=== PATIENT | female | born 1995 | race Caucasian/White ===

== ENCOUNTER → 2020-07-11 14:26 | Outpatient (CLI) | payer OTHER, SELFPAY ==
[2020-07-11 13:09] VITALS: BMI 38.0
[2020-07-11 14:42] LABS: Absolute Lymphocyte Count 1.97 X10^3/uL (0.83-4.51); Absolute Neutrophil Count 6.5 X10^3/uL (2.0-7.7); Basophil# 0.01 X10^3/uL; Basophil% 0.1 % (0-1); Eosinophil# 0.04 X10^3/uL; Eosinophils% 0.4 % (0-5); Hematocrit 37.8 % (37-47); Hemoglobin 12.7 g/dL (12.0-15.0); Lymphocyte # 1.97 X10^3/ul (4.0); Lymphocyte % 21.4 % (19-41); Mean Corp Hgb Conc 33.6 g/dL (32-36); Mean Corpuscular Hgb 29.7 pg (27.0-32.0); Mean Corpuscular Volume 88.5 fL (81-99); Mean Platelet Vol. 10.4 fl (6.2-12.0); Monocyte# 0.61 X10^3/uL; Monocyte% 6.6 % (0-10); NRBC Flagged by Analyzer 0 % (0-5); Neutrophil # 6.53 X10^3/uL (2.7-7.7); Neutrophil % 71.2 % (47-70); Platelet Count 309 K/mm3 (150-450); RBC Distribution Width CV 12.1 % (11.6-14.6); RBC Distribution Width SD 39.1 fl (35.1-43.9); Red Blood Count 4.27 M/mm3 (4.2-5.4); White Blood Count 9.2 K/mm3 (4.4-11.0)
[2020-07-11 14:52] LABS: Glucose Challenge Gest 1H 50g 105 mg/dL (70-140)
[2020-07-11 18:14] LABS: Amphetamine Urine VISTA NEGATIVE (<1000 ng/mL); Barbiturate Urine VISTA NEGATIVE (< 200 ng/mL); Benzodiazepine Urine VISTA NEGATIVE (< 200 ng/mL); Cocaine Urine VISTA NEGATIVE (< 300 ng/mL); Ecstacy Urine VISTA NEGATIVE (< 500 ng/mL); Methadone Urine VISTA NEGATIVE (< 300 ng/mL); PCP Urine VISTA NEGATIVE (< 25 ng/mL); THC Urine VISTA NEGATIVE (< 50 ng/mL); Vista UDS pH Range 6
[2020-07-12 05:28] LABS: Rapid Plasmin Reagin (RPR) NONREACTIVE (NONREACTIVE)
[2020-07-12 11:13] LABS: HIV - WCH Non-Reactive (Nonreactive); Hepatitis B Surface Antigen Non-Reactive (Nonreactive); Hepatitis C Antibody Non-Reactive (Nonreactive); Rubella IgG 29.9 IU/mL
[2020-07-14 12:07] LABS: Chlamydia By Nucleic Acid AMP Negative (Negative)
[2020-07-14 13:59] LABS: Gonococcus By Nucleic Acid AMP Negative (Negative)
== END ==
PROVIDERS: PCP Student in an Organized Health Care Education/Training Program; Referring Provider Obstetrics & Gynecology; Visit Provider Obstetrics & Gynecology
DX: Z34.90 Encounter for supervision of normal pregnancy, unspecified, unspecified trimester (principal)
CPT/HCPCS: 36415; 80307; 82950; 85025; 86592; 86703; 86762; 86803; 86850; 86900; 86901; 87086; 87088; 87340; 87491; 87591

== ENCOUNTER → 2020-08-13 12:17 | Outpatient (CLI) | payer OTHER, SELFPAY ==
[2020-08-13 12:09] VITALS: BMI 38.0
[2020-08-13 13:22] LABS: NATERA MAILED SPECIMEN
== END ==
PROVIDERS: PCP Student in an Organized Health Care Education/Training Program; Referring Provider Nurse Practitioner Women's Health; Visit Provider Nurse Practitioner Women's Health
DX: Z34.81 Encounter for supervision of other normal pregnancy, first trimester (principal)
CPT/HCPCS: 36415

== ENCOUNTER → 2020-09-06 17:23 | Outpatient (CLI) | payer OTHER, SELFPAY ==
[2020-08-13 12:09] VITALS: BMI 38.0
== END ==
PROVIDERS: PCP Student in an Organized Health Care Education/Training Program; Referring Provider Obstetrics & Gynecology; Visit Provider Obstetrics & Gynecology
DX: U07.1 COVID-19 (principal)
CPT/HCPCS: 87635; C9803; U0003

== ENCOUNTER → 2020-11-23 12:28 | Outpatient (CLI) | payer OTHER, SELFPAY ==
[2020-11-05 13:10] VITALS: BMI 39.3
--- NOTE | 2020-11-23 12:36 | US_ITS ---
STUDY: SECOND AND THIRD TRIMESTER OBSTETRICAL ULTRASOUND - LIMITED REASON FOR EXAM: Female, 25 years old GROWTH LMP: 05/05/2020. PRIOR ULTRASOUND: None. TECHNIQUE: Transabdominal TECHNICAL QUALITY: Adequate. FINDINGS: There is a single intrauterine fetus. The fetus is in a cephalic presentation. There is demonstrated cardiac activity with a heart rate of 136 bpm. There is a normal amniotic fluid volume. The largest amniotic fluid pocket measures 8.2 cm. The amniotic fluid index (KANNAN) is within normal limits. The placenta is posterior in location and is not low lying. There are Grade 0 placental changes. The cervix measures 3.7 cm in length. BIOMETRY: BPD: 7.68 cm: 30 weeks, 5 days HC: 28.68 cm: 31 weeks, 3 days AC: 25.55 cm: 29 weeks, 5 days FL: 5.35 cm: 28 weeks, 2 days Age by LMP: 28 weeks, 6 days. SILVA by LMP: 02/09/2021. age by current US: 30 weeks, 2 days. SILVA by current US: 01/30/2021. Estimated weight: 1411 grams, +/- 209 grams, 57 percentile. US/OB Limited With Biometrics IMPRESSION: Single live uterine gestation with a mean gestational age of 30 weeks and 2 days. Electronically Signed: Angel Ovalle, at 14:01 EST , Service support ,
[2020-11-23 13:46] LABS: Absolute Neutrophil Count 7.3 X10^3/uL (2.0-7.7); Basophil# 0.01 X10^3/uL; Basophil% 0.1 % (0-1); Eosinophil# 0.04 X10^3/uL; Eosinophils% 0.4 % (0-5); Hematocrit 37.2 % (37-47); Hemoglobin 12.2 g/dL (12.0-15.0); Mean Corp Hgb Conc 32.8 g/dL (32-36); Mean Corpuscular Hgb 28.8 pg (27.0-32.0); Mean Corpuscular Volume 87.7 fL (81-99); Mean Platelet Vol. 11.2 fl (6.2-12.0); Monocyte# 0.64 X10^3/uL; Monocyte% 6.4 % (0-10); NRBC Flagged by Analyzer 0 % (0-5); Neutrophil # 7.33 X10^3/uL (2.7-7.7); Neutrophil % 73.5 % (47-70); Platelet Count 240 K/mm3 (150-450); RBC Distribution Width CV 12.9 % (11.6-14.6); RBC Distribution Width SD 41.4 fl (35.1-43.9); Red Blood Count 4.24 M/mm3 (4.2-5.4)
[2020-11-23 13:58] LABS: Glucose Challenge Gest 1H 50g 159 mg/dL (70-140)
== END ==
PROVIDERS: Obstetrics & Gynecology; PCP Student in an Organized Health Care Education/Training Program; Referring Provider Obstetrics & Gynecology; Visit Provider Obstetrics & Gynecology
DX: O09.93 Supervision of high risk pregnancy, unspecified, third trimester (principal); Z13.1 Encounter for screening for diabetes mellitus; Z3A.30 30 weeks gestation of pregnancy
CPT/HCPCS: 36415; 76816; 82950; 85025

== ENCOUNTER → 2020-12-04 09:46 | Outpatient (CLI) | payer OTHER, SELFPAY ==
[2020-11-23 14:01] VITALS: BMI 39.6
[2020-12-04 10:39] LABS: Glucose GTT-Gestation. Fasting 79 mg/dL (<105)
[2020-12-04 12:55] LABS: Glucose GTT-Gestational 2 Hr 157 mg/dL (<165)
[2020-12-04 12:57] LABS: Glucose GTT-Gestational 1 Hr 154 mg/dL (<190)
[2020-12-04 14:19] LABS: Glucose GTT-Gestational 3 Hr 84 L (<145)
== END ==
PROVIDERS: PCP Student in an Organized Health Care Education/Training Program; Referring Provider Obstetrics & Gynecology; Visit Provider Obstetrics & Gynecology
DX: O99.810 Abnormal glucose complicating pregnancy (principal)
CPT/HCPCS: 36415; 82951; 82952

== ENCOUNTER → 2021-01-18 | Outpatient (CLI) | payer OTHER, SELFPAY ==
[2021-01-18 14:07] VITALS: BMI 41.0
== END | disposition home or self-care (01) ==
LOC: LABSPEC 16:13
PROVIDERS: PCP Student in an Organized Health Care Education/Training Program; Visit Provider Obstetrics & Gynecology
DX: Z34.93 Encounter for supervision of normal pregnancy, unspecified, third trimester (principal); Z3A.36 36 weeks gestation of pregnancy
CPT/HCPCS: 87081

== ENCOUNTER 2021-02-05 07:00 | Inpatient (IN) | payer OTHER, SELFPAY ==
[2020-11-23 14:01] VITALS: BMI 39.6
[2021-02-04 09:03] VITALS: BMI 41.1
[2021-02-05] VITALS (48 sets, daily range): BP systolic 86–144; BP diastolic 48–97; PULSE 56–245; TEMP 36.1–37.4; O2SAT 83–100; BMI 41.2
--- NOTE | 2021-02-05 07:33 | PCM.HPOB.BLA ---
- Problem List (1) 36 weeks gestation of Status: Acute Comment: electronic covid test ordered 01/18/21 (scheduled for 02/08/21 at 1450) (2) Abnormal glucose affecting Status: Acute Comment: NL 3gtt (3) Anxiety during Status: Acute Comment: encouraged counseling; 09/10 declines meds. (4) COVID-19 affecting , antepartum Status: Acute Comment: Tested positive 09/07. Recommend starting baby ASA and performing serial growth ultrasounds. NL growth 10/18/20 55%ile. Stopped ASA at 24 weeks. (5) Genital herpes affecting Status: Acute Qualifiers: Comment: valtrex at 36 weeks (6) LGA (large for gestational age) fetus affecting management of mother Status: Acute Qualifiers: Comment: discussed IOL bt 39-40 based on favorable herbert score (7) Macrosomia affecting management of mother Status: Acute Comment: 92%- 01/17/21 (8) Obesity affecting Status: Acute Qualifiers: Comment: 1 tm glucola. encouraged healthy weight gain. (9) Status: Acute Qualifiers: Comment: genetic- low risk, carrier, and ntd screening discussed. Anatomy- f/u heart and face views scheduled 10/01/20 (10) Supervision of high-risk Status: Acute Qualifiers: Comment: PRR SILVA 02/09/21 Boy! 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 Is patient in pain?: No Allergies No Known Allergies Allergy (Verified 02/04/21 09:03) Medications vitamin#30 30 mg iron-10 mg iron-folic acid 1 mg-omg3 capsule cap PO 07/11/20 [History Confirmed 02/04/21] promethazine 12.5 mg tablet 12.5 mg PO TID PRN #60 tab 07/13/20 [Rx Confirmed 02/04/21] valacyclovir 500 mg tablet 500 mg PO BID #60 tab 02/04/21 [Rx Confirmed 02/04/21] Last Menstral Period: 05/05/20 Zika: Zika virus screening: Negative : No PFSH PFSH Medical History Acne (Acute) Anxiety (Acute) Bulimia nervosa (Acute) Chronic motor or vocal tic disorder (Acute) Enteritis due to Rotavirus (Acute) Surgical History History of nasal surgery (Acute) Family History Brother Asthma Allergies Grandfather Diabetes Prostate cancer Social History (Updated 02/04/21 @ 09:[address] Stefani Mcduffie MD) Smoking Status: Never smoker alcohol intake: current details: pre preganncy substance use type: does not use caffeine: Yes what type of physical activity do you participate in: walking seatbelt use: always do you feel safe at home: Yes additional social history: Sae- [facility] [employer] Pregancy History 1 Elective abortions Hx Para Spontaneous abortions Hx # Term Pregnancies Ectopic pregnancies Hx # Pregnancies Multiple births # of living children HPI 39 weeks: Details: ZE KUMAR is a 25 year old who presents for IOL secondary to macrosomia and favorable herbert score. OB Visit SILVA Calculator Estimated Delivery Date Method Current WG Current Estimate 02/09/21 LMP (Certain) 39w 2d Other Estimates 02/09/21 Ultrasound #1 39w 2d Expected Delivery Route/Plan consider IOL 39-40 weeks based on herbert score, due to size Labor Preferences- CB/BF classes: CB classes in December labor support person: Sae labor intervention preferences: none pain management options preferred: epidural cut cord/dad catch: cut : yes PP control planned: undecided discussed possible routes of delivery and associated risks: discussed possible delivery modalities and possible indications for each including R/B/A of , VAVD, FAVD and CS. questions answered. special requests: desires to avoid OVD and episiotomy Specific Issue/Plans flu vaccine: declines tdap vaccine: declines rhogam: na LARC form signed: 12/07/20 movement and labor precautions reviewed. Problem list reviewed and updated with the most current plan of care details and appropriate orders placed. Relevant counseling for the gestational age provided. Continue routine care and follow up unless otherwise noted in visit notes/problem list details Initial Weight: 222 lb Date EGA Weight BP Urine Prot Glucose FHR FuHt Pres Dilation Effaced St Visit Note 07/11/20 9w 4d 222 lb (+0 oz) 110/86 170 SM- no vb cramping CRL 2.6 cm cons with LMP 08/13/20 14w 2d 222 lb (+0 oz) 124/78 Trace Negative 162 MH-No Vb, LOF. Nausea gone now. Has decided to get NIPT done. 10/10/20 22w 4d 228 lb (+6 lb) 120/70 Negative Negative 150 GP - no ctx, LOF, VB, DFM. Needs f/u views on anatomy scan. 11/05/20 26w 2d 229 lb (+7 lb) 112/74 Negative Negative 150 SM- no vb lof good fm no regular ctx. cbc gct tdap. SM- no vb lof good fm no regular ctx. cbc gct tdap next time 11/23/20 28w 6d 231 lb (+9 lb) 106/70 Negative Negative 145 29 SM- no vb lof good fm fn oregular ctx 12/07/20 30w 6d 234 lb (+12 lb) 124/80 Negative Negative 145 30 GP - no LOF, VB, DFM, ctx. Denies complaints. Pt stopped taking ASA at 24 weeks. LARC form signed. GP - no LOF, VB, DFM, ctx. Denies complaints. Pt stopped taking ASA at 24 weeks. LARC form signed. Considering Fee for name. 12/21/20 32w 6d 230 lb (+8 lb) 106/68 Negative Negative 145 33 SM- no vb lof good fm no regular ctx 01/04/21 34w 6d 236 lb (+14 lb) 120/70 Negative Negative 150 34 GP - no LOF, VB, DFM, ctx. Valtrex prescibed to start at 36w. CB classes this weekend. Discussed OVD. 01/18/21 36w 6d 239 lb (+17 lb) 132/88 Negative Negative 145 37 Cephalic 2 60 SM- no vb lof good fm no reuglar ctx 01/25/21 37w 6d 238 lb (+16 lb) 131/86 Negative Negative 140 38 Cephalic 2 SM- no vb lof good fm no regular ctx some diarrhea 02/01/21 38w 6d 240 lb (+18 lb) 129/87 Negative Negative 140 39 Cephalic 3 60 -2 SM- no vb lof good fm no regular ctx 02/04/21 39w 2d 240 lb (+18 lb) 110/88 Negative Negative 145 41 Cephalic 4 70 -1 SM- no vb lof good fm no regular ctx discussed IOL for macrosomia and favorable cervix ACOG First Trimester First Trimester: Desire for , Alcohol, Tobacco Cessation, Illicit/Recreational Drug/Substance Use, Intimate Partner Violence, Barriers to care, Unstable Housing, Communication Barriers, Environmental/Work Hazards, Anticipated Course of Care, Toxoplasmosis Precations, Use of Any medications, Sexual activity, Exercise, Dental Care, Sauna/Hot tub use, Seat Belt use, Childbirth classes/Hospital facilities, , Travel, Indications for US and Screening for Aneuploidy Second Trimester Second Trimester: Signs and Symptoms of Labor, Selecting a care provider, Reproductive Life Planning, Care Planning, Tobacco Cessation, Depression/Anxiety and Intimate Partner Violence Third Trimester Third Trimester: Pain Management Plans, Labor support person(s), Immediate Larc, Movement Monitoring and Feeding Yes ; discussed Trial of Labor after Counseling or discussed Circumcision preference Diagnostics Diagnostics Diagnostics Gest Glucose Tolerance MG/DL 12/04/20 Glucose 1 Hr 50 gm 159 mg/dL (70-140) H 11/23/20 Hgb 12.2 g/dL (12.0-15.0) 11/23/20 Hct 37.2 % (37-47) 11/23/20 Details: HIV: Urine Culture: Sequential Screen: NIPT Screen: Addendum entered and electronically signed by Stefani Mcduffie MD 02/04/21 09:26: ROS Const Reports system reviewed and no additional complaints, except as documented Card Reports system reviewed and no additional complaints, except as documented Resp Reports system reviewed and no additional complaints, except as documented GI Reports system reviewed and no additional complaints, except as documented, Reports nausea Reports system reviewed and no additional complaints, except as documented Musc Reports system reviewed and no additional complaints, except as documented all other systems reviewed and negative Exam Const General: cooperative, healthy appearing, comfortable HENMT Head: normal to inspection Nose: external nose normal Face and sinus: normal facial exam Neck Neck: normal visual inspection, full ROM, no lymphadenopathy Thyroid: thyroid normal Chest Chest palpation & inspection: normal inspection of the chest Resp Effort & Inspection: normal respiratory effort GI Inspection: normal to inspection Palpation: soft, other (gravid uterus) Other: vertex and large size for gestational age Other: Cervical Exam: /-1 Extrem General: pedal edema Assessment & Plan Problems 1. Z34.90 genetic- low risk, carrier, and ntd screening discussed. Anatomy- f/u heart and face views scheduled 10/01/20 2. Obesity affecting O99.210 1 tm glucola. encouraged healthy weight gain. 3. Anxiety during O99.340; F41.9 encouraged counseling; 09/10 declines meds. 4. COVID-19 affecting , antepartum O98.519; U07.1 Tested positive 09/07. Recommend starting baby ASA and performing serial growth ultrasounds. NL growth 10/18/20 55%ile. Stopped ASA at 24 weeks. 5. Abnormal glucose affecting O99.810 NL 3gtt 6. LGA (large for gestational age) fetus affecting management of mother O36.60X0 discussed IOL bt 39-40 based on favorable herbert score 7. Genital herpes affecting O98.319; A60.09 valtrex at 36 weeks 8. 36 weeks gestation of Z3A.36 electronic covid test ordered 01/18/21 (scheduled for 02/08/21 at 1450) 9. Macrosomia affecting management of mother O36.60X0 92%- 01/17/21 10. Supervision of high-risk O09.90 PRR SILVA 02/09/21 Boy! Probably Fee Sae Patient presents IOL, plan management for with pitocin/AROM. Pain management: plans epidural. GBS negative. Management of any complications: macrosomia I have reviewed the ON LICENSE OF [facility] and made any clinically relevant updates.
[2021-02-05] MEDS: Lactated Ringers 1,000 ML 50 ML IV (07:45)
[2021-02-05 08:08] LABS: Absolute Neutrophil Count 7.3 X10^3/uL (2.0-7.7); Basophil# 0.01 X10^3/uL; Basophil% 0.1 % (0-1); Eosinophil# 0.04 X10^3/uL; Eosinophils% 0.4 % (0-5); Hematocrit 36.1 % (37-47); Hemoglobin 12.1 g/dL (12.0-15.0); Lymphocyte % 20.7 % (19-41); Mean Corp Hgb Conc 33.5 g/dL (32-36); Mean Corpuscular Hgb 29.6 pg (27.0-32.0); Mean Corpuscular Volume 88.3 fL (81-99); Monocyte# 0.64 X10^3/uL; Monocyte% 6.3 % (0-10); NRBC Flagged by Analyzer 0 % (0-5); Neutrophil # 7.27 X10^3/uL (2.7-7.7); Neutrophil % 71.6 % (47-70); Platelet Count 198 K/mm3 (150-450); RBC Distribution Width CV 13.7 % (11.6-14.6); RBC Distribution Width SD 43.8 fl (35.1-43.9); Red Blood Count 4.09 M/mm3 (4.2-5.4); White Blood Count 10.2 K/mm3 (4.4-11.0)
[2021-02-05] MEDS: Oxytocin 30 units/NS 500 ml 30 UNITS/500 ML IV.SOLN IV (08:11)
[2021-02-05] MEDS: fentaNYL 100 MCG/2 ML Ampul IV (15:46)
[2021-02-05] MEDS: fentaNYL-bupivacaine (epidural) 100 ML BAG EPIDURAL ×2 (16:15→21:23)
[2021-02-05] MEDS: Lactated Ringers 500 ML 999 ML IV ×2 (16:19→21:19)
[2021-02-05] MEDS: Lactated Ringers 1,000 ML 200 ML IV (19:35)
[2021-02-06] VITALS (41 sets, daily range): BP systolic 98–140; BP diastolic 56–88; PULSE 71–107; RESP 12–18; TEMP 36.1–37; O2SAT 84–98
[2021-02-06] MEDS: Lactated Ringers 1,000 ML 200 ML IV ×2 (01:04→06:16)
[2021-02-06] MEDS: Lactated Ringers 500 ML 999 ML IV (01:16)
[2021-02-06] MEDS: fentaNYL-bupivacaine (epidural) 100 ML BAG EPIDURAL ×2 (02:04→06:55)
[2021-02-06] MEDS: Acetaminophen 500 MG Tablet PO (10:17)
[2021-02-06] MEDS: Sodium Citrate/Citric Acid 30 ML UDC PO (10:17)
[2021-02-06] MEDS: Cefazolin 2 GM in 0.9% Normal Saline 100 ML IV (10:40)
[2021-02-06] MEDS: Ondansetron 4 MG/2 ML Vial IV (11:42)
[2021-02-06] MEDS: Lactated Ringers 1,000 ML 100 ML IV (11:45)
[2021-02-06] MEDS: Ketorolac 30 MG/ML Syringe IV ×2 (12:00→18:02)
[2021-02-06] MEDS: Oxytocin 30 units/NS 500 ml 30 UNITS/500 ML IV.SOLN 167 UNITS IV (12:00)
--- NOTE | 2021-02-06 13:07 | PCM.OPRPT ---
Problem List (1) 36 weeks gestation of Status: Acute Comment: electronic covid test ordered 01/18/21 (scheduled for 02/08/21 at 1450) (2) Abnormal glucose affecting Status: Acute Comment: NL 3gtt (3) Anxiety during Status: Acute Comment: encouraged counseling; 09/10 declines meds. (4) COVID-19 affecting , antepartum Status: Acute Comment: Tested positive 09/07. Recommend starting baby ASA and performing serial growth ultrasounds. NL growth 10/18/20 55%ile. Stopped ASA at 24 weeks. (5) Genital herpes affecting Status: Acute Qualifiers: Comment: valtrex at 36 weeks (6) LGA (large for gestational age) fetus affecting management of mother Status: Acute Qualifiers: Comment: discussed IOL bt 39-40 based on favorable richmond score (7) Macrosomia affecting management of mother Status: Acute Comment: 92%- 01/17/21 (8) Obesity affecting Status: Acute Qualifiers: Comment: 1 tm glucola. encouraged healthy weight gain. (9) Status: Acute Qualifiers: Comment: genetic- low risk, carrier, and ntd screening discussed. Anatomy- f/u heart and face views scheduled 10/01/20 (10) Supervision of high-risk Status: Acute Qualifiers: Comment: PRR SILVA 02/09/21 Boy! Probably Fee Sae Delivery Classification: MAXWELL Final SILVA: 02/09/21 Gestational age: 39 Weeks and 4 Days rhinestone setter: Yulissa Ramos Special Medications: sandra Implants Used: none Date of Procedure: 02/06/21 Pre-Operative Diagnosis: lga, arrest of descent and dilation Post-Operative Diagnosis: same plus CPD Indications for : Arrrest of Descent Description of Procedure: 25-year-old G1, P0 at 39 weeks 4 days presents for induction of labor secondary to macrosomia and favorable Richmond score of 9. Patient had estimated weight in the 92nd percentile and was counseled regarding options of management for expectant management versus induction of labor. The decision was made to not induce unless her Richmond score was favorable. Upon admission Richmond score was 9. Patient was started on Pitocin and underwent artificial rupture membranes and epidural. Patient began at 7:00 in the morning and by 11:00 that night she was 8 cm dilated and in active labor with an IUPC placed there were intermittent periods of adequate [place] units as the Pitocin had to be dosed intermittently due to heart rate variable decelerations intermittently. Overall heart rate tracing pattern was reassuring and therefore labor continued. 11 hours later she was arrested at 9 cm with adequate contractions and to Pitocin washouts performed therefore the patient was counseled regarding options and the decision to proceed with a primary for suspicion of CPD or large for gestational age was made. Epidural dose was adequate and the patient was placed in the dorsal supine position with leftward tilt. Patient was prepped and draped in the normal sterile fashion. Pfannenstiel skin incision was made with the scalpel and carried through to the underlying layer of fascia with the scalpel. Fascia was nicked in the midline and the incision extended laterally. The rectus bellies were dissected off superiorly and inferiorly with out complication both sharply and bluntly. The peritoneum was entered digitally. The incision was stretched and a low transverse uterine incision was made with the scalpel. The 's head was delivered atraumatically followed by the anterior and posterior shoulders without complication the rest of the infant delivered. The cord was clamped and cut and the was handed off to awaiting nurse. Difficult molding of the head was noted and therefore CPD was suspected. the placenta was delivered spontaneously immediately following and was noted to be intact and have a three-vessel cord. The uterus was exteriorized cleared of all clots and debris, and the incision was closed in a double layer closure using #1 Monocryl. Patient all 3 of 8 sutures were placed over the right uterine incision to obtain hemostasis. The ovaries and fallopian tubes were noted to be within normal limits. The uterus was returned to the maternal abdomen and gutters were cleared of all clots and debris. The peritoneum was closed with 3-0 Monocryl in a running fashion. Gloves were changed prior to fascial closure. Fascia was closed with 0 PDS in a running fashion. Subcutaneous tissue was copiously irrigated and the skin was closed with 3-0 Monocryl in a subcuticular fashion. Mepilex dressing was applied without complication. Patient was taken to recovery in stable condition. It was discussed with the patient that based on the clinical information obtained during this encounter, combined with her history, at this time I would recommend cesareans for future deliveries if further pregnancies are desired. Amniotic Membrane Rupture Type: Artificial Amniotic Fluid Description: Clear Placenta Disposition: [facility] Drain: Geronimo to straight drain Cord Entanglement: Around neck x 1, loose Esitmated Blood Loss (ml): 700 Infant Gender: Male Delayed cord clamping: Yes Antibiotic Given: Ancef 2 grams IV x1, Zithromax 500 mg/5 mL X1 Pt instructed on risks of surgery: Bleeding, Anesthesia Risks, Infection, Need for Future C-Sections, Injury to surrounding structure(s) including bowel and bladder Complications: None - Admit VTE Documentation VTE Present on Admission: No VTE Mechan Device Prophylaxis: SCD's Multi Select Codes - Urinary/Genital Urinary/Genital CPT Codes: 92932 Delivery [facility]
--- NOTE | 2021-02-06 14:19 | DCINST_ITS ---
Discharge Diet: No Restrictions Discharge Activity: May Not Drive - for 2 weeks, May not drive while taking narcotic pain medications., May Shower, May Take a Tub Bath - in 7 days May resume sexual activity in: 4-6 weeks Lifting Restrictions: 20 pounds Additional Activity Instructions:: Nothing in the vagina for 4-6 weeks. You may return to work/school in 6 weeks. Call your doctor if your incision/area has: Continuous Slow Oozing, Sudden Increased Bleeding, Increased Pain/ Swelling, Increased Redness, Foul Smelling Discharge Call your doctor if you observe: Fever of 101 or Higher, Using more than one pad per hour - for 2 hours Suture Line Care: Avoid Pulling/Pushing, Avoid Pinching/Bending Cleanse incision/area with: Keep Dressing Clean & Dry Additional Instructions: If you experience any of the following, contact your healthcare provider. * Bleeding that soaks a pad every hour for 2 hours * Fever 100.4 or higher * Unrelieved incision or abdominal pain * Swelling, redness, discharge or bleeding from your incision or episiotomy site * Your incision begins to separate * Problems urinating (including inability to urinate or burning while urinating). * Visual changes * Severe headache * Flu-like symptoms * Pain or redness in one of both of your breasts * Pain, warmth, tenderness or swelling in your legs, especially the calf area * Frequent nausea and vomiting * Symptoms of depression or anxiety If you experience any of the following, call 911 or go to the nearest Emergency Room. * Chest pain * Problems breathing * Seizure activity * Partial or complete paralysis of a body part, slurred speech, weakness or drooping of the face, or a sudden inability to walk or hold your balance Allergies/Adverse Reactions: Allergies No Known Allergies Allergy (Verified 02/04/21 09:03) Medications to take at Discharge vitamin#30 30 mg iron-10 mg iron-folic acid 1 mg-omg3 capsule 1 cap PO DAILY MDD 07/11/20 Valacyclovir HCl [Valacyclovir] 500 mg PO BID 02/05/21 Naproxen [Naprosyn] 250 - 500 mg PO Q8H PRN PRN #30 tab 02/06/21 Oxycodone HCl/Acetaminophen [Percocet 5-325] 1 - 2 tablet PO Q6H PRN PRN 7 Days #15 tablet 02/06/21 The following prescriptions were given: Naproxen [Naprosyn] 250 - 500 mg PO Q8H PRN PRN #30 tab PRN Reason: MILD PAIN Transmission Status: Pending to [facility] Oxycodone HCl/Acetaminophen [Percocet 5-325] 1 - 2 tablet PO Q6H PRN PRN 7 Days #15 tablet PRN Reason: Pain Transmission Status: Sent to [facility] Follow-Up: Call to make an appointment with your doctor for an incision check in 1-2 weeks. You will also need a 6 week post- follow up appointment. Test results from this visit will be discussed in further detail at your follow- up appointment, if applicable. Please Follow Up With: Stefani Mcduffie MD - Call to make an appointment for an incision check in 1-2 [phone] When: You will need a post- check in 6 weeks. Primary Care Physician: Alden Schulz DO [Primary Care Provider] -
--- NOTE | 2021-02-06 14:36 | NURSING ---
Epidural catheter removed. Blue tip intact. Placed bandaide over puncture site.
[2021-02-06] MEDS: Acetaminophen 500 MG Tablet 1000 MG PO (16:26)
[2021-02-07] VITALS (14 sets, daily range): BP systolic 98–117; BP diastolic 55–71; PULSE 69–95; RESP 16–18; TEMP 36.2–36.8; O2SAT 92–98
[2021-02-07] MEDS: Ketorolac 30 MG/ML Syringe IV ×2 (00:08→06:38)
[2021-02-07] MEDS: Enoxaparin 40 MG/0.4 ML Syringe SC ×3 (00:08→21:25)
[2021-02-07] MEDS: Acetaminophen 500 MG Tablet 1000 MG PO ×4 (00:08→18:27)
[2021-02-07] MEDS: 0.9% Saline Lock 10 ML Syringe IV (06:58)
[2021-02-07 07:01] LABS: Hematocrit 27.9 % (37-47); Hemoglobin 8.9 g/dL (12.0-15.0); Mean Corp Hgb Conc 31.9 g/dL (32-36); Mean Corpuscular Hgb 28.8 pg (27.0-32.0); Mean Corpuscular Volume 90.3 fL (81-99); Mean Platelet Vol. 13.1 fl (6.2-12.0); Platelet Count 129 K/mm3 (150-450); RBC Distribution Width SD 45.5 fl (35.1-43.9); Red Blood Count 3.09 M/mm3 (4.2-5.4); White Blood Count 13.2 K/mm3 (4.4-11.0)
--- NOTE | 2021-02-07 07:49 | PCM.PN.OB ---
Patient Problems: Active and Suspected Problems (Last Reviewed 02/04/21 @ 09:07 by Rosaura Lopez) Macrosomia affecting management of mother (Acute) 92%- 01/17/21 36 weeks gestation of (Acute) electronic covid test ordered 01/18/21 (scheduled for 02/08/21 at 1450) Genital herpes affecting (Acute) valtrex at 36 weeks LGA (large for gestational age) fetus affecting management of mother (Acute) discussed IOL bt 39-40 based on favorable herbert score Abnormal glucose affecting (Acute) NL 3gtt COVID-19 affecting , antepartum (Acute) Tested positive 09/07. Recommend starting baby ASA and performing serial growth ultrasounds. NL growth 10/18/20 55%ile. Stopped ASA at 24 weeks. Anxiety during (Acute) encouraged counseling; 09/10 declines meds. Obesity affecting (Acute) 1 tm glucola. encouraged healthy weight gain. (Acute) genetic- low risk, carrier, and ntd screening discussed. Anatomy- f/u heart and face views scheduled 10/01/20 Supervision of high-risk (Acute) PRR SILVA 02/09/21 Boy! Probably Fee Sae Subjective: Patient doing well without complaints. Tolerating PO. Ambulating and voiding without difficulty. Breast feeding well. Denies chest pain, shortness of breath, calf pain/swelling, fevers, chills, lightheadedness. - Physical Exam Vitals/I&O's: Vital Signs Temp Pulse Resp BP Pulse Ox 97.2 F L 71 16 117/55 L 95 02/07/21 04:30 02/07/21 06:15 02/07/21 06:15 02/07/21 04:30 02/07/21 06:15 Oxygen Delivery Method Room Air Weight: 240 lb 4.862 oz Body Mass Index (BMI) 41.2 Intake and Output for Last 24 Hours 02/05/21 02/06/21 02/07/21 23:59 23:59 23:59 Intake Total 2636.84 / 2636.84 4985.30 / 4985.30 973.33 / 973.33 Output Total 800 / 800 2650 / 2650 500 / 500 Balance 1836.84 / 1836.84 2335.30 / 2335.30 473.33 / 473.33 General: Alert, Oriented x3, Cooperative Abdomen: Soft, Non-Distended, - - Dressing dry and intact. FF below U. Appropriately tender Microbiology Past 72 Hours 02/05/21 08:05 Mucosa - Nose SARS-CoV-2 Antigen (Rapid) - Final Laboratory Results 02/07/21 06:35: WBC 13.2 H, RBC 3.09 L, Hgb 8.9 L, Hct 27.9 L, MCV 90.3, MCH 28.8, MCHC 31.9 L, RDW Std Deviation 45.5 H, RDW Coeff of Joceline 14.0, Plt Count 129 L, MPV 13.1 H Current Medications Acetaminophen (Acetaminophen 500 Mg Tablet) 1,000 mg PO Q6 [facility] Last Admin: 02/07/21 06:38 Dose: 1,000 mg Documented by: Bisacodyl (Bisacodyl 10 Mg Suppository) 10 mg RC UD PRN PRN Reason: If no BM Diphenhydramine HCl (Diphenhydramine 25 Mg Capsule) 25 mg PO Q6H PRN PRN PRN Reason: ITCHING Stop: 02/07/21 11:59 Enoxaparin Sodium (Enoxaparin 40 Mg/0.4 Ml Syringe) 40 mg SC BID [facility] Last Admin: 02/07/21 00:08 Dose: 40 mg Documented by: Hydrocortisone (Hydrocortisone 2.5% Crm) 1 applic TOPICAL TID PRN PRN; Protocol PRN Reason: Discomfort Lactated Ringer's () 1,000 mls @ 100 mls/hr IV .Q10H [facility] Last Admin: 02/07/21 00:45 Dose: Not Given Documented by: Methylergonovine Maleate (Methylergonovine 0.2 Mg/Ml Ampul) 0.2 mg IM X1 PRN PRN Reason: Uterine Atony Nalbuphine HCl (Nalbuphine 10 Mg/Ml Ampul) 5 mg IV Q3H PRN PRN PRN Reason: ITCHING Stop: 02/07/21 11:59 Naloxone HCl (Naloxone 0.4 Mg/Ml Syringe) 0.02 mg IV Q1M PRN PRN Reason: RR <10 and pt unresponsive Naproxen (Naproxen 250 Mg Tablet) 500 mg PO Q8H [facility] Ondansetron HCl (Ondansetron 4 Mg/2 Ml Vial) 4 mg IV Q4H PRN PRN PRN Reason: Nausea Last Admin: 02/06/21 11:42 Dose: 4 mg Documented by: Oxycodone HCl (Oxycodone 5 Mg Tablet) 5 - 10 mg PO Q4H PRN PRN PRN Reason: Pain Score 4-10 Prochlorperazine Edisylate (Prochlorperazine 10 Mg/2 Ml Vial) 10 mg IV Q6H PRN PRN PRN Reason: NAUSEA Senna/Docusate Sodium (Senna/Docusate Sodium 1 Tablet) 0 tablet PO DAILY HEATHER Simethicone (Simethicone 80 Mg Tablet) 80 mg PO PCHS PRN PRN Reason: Indigestion/stomach pain Last Admin: 02/07/21 05:08 Dose: 80 mg Documented by: Sodium Chloride (0.9% Saline Lock 10 Ml Syringe) 5 - 15 ml IV UD PRN PRN Reason: SALINE FLUSH Last Admin: 02/07/21 06:58 Dose: 10 ml Documented by: Medical Necessity - Tobacco Use Smoking Status: Former smoker Assessment/Plan All Active Problems (Last Reviewed 02/04/21 @ 09:07 by Rosaura Lopez) Cephalopelvic disproportion (Acute) Macrosomia affecting management of mother (Acute) 36 weeks gestation of (Acute) Genital herpes affecting (Acute) LGA (large for gestational age) fetus affecting management of mother (Acute) Abnormal glucose affecting (Acute) COVID-19 affecting , antepartum (Acute) Anxiety during (Acute) Obesity affecting (Acute) (Acute) Supervision of high-risk (Acute) s/p LTCS PPD # 1 1. routine post care 2. breast feeding- support given 3. rh positive 4. rubella immune
[2021-02-07] MEDS: Senna/Docusate Sodium 1 Tablet PO (11:35)
[2021-02-07] MEDS: Naproxen 250 MG Tablet 500 MG PO ×2 (12:26→20:34)
[2021-02-07] MEDS: oxyCODONE 5 MG Tablet PO ×3 (14:58→21:25)
[2021-02-08] MEDS: Acetaminophen 500 MG Tablet 1000 MG PO ×2 (01:01→07:07)
[2021-02-08 03:52] VITALS: BP 105/66; PULSE 75; PULSE 77; RESP 16; TEMP 36.6; O2SAT 96
[2021-02-08] MEDS: Naproxen 250 MG Tablet 500 MG PO (04:30)
[2021-02-08] MEDS: oxyCODONE 5 MG Tablet PO (07:13)
[2021-02-08 08:15] VITALS: BP 127/80; PULSE 82; RESP 16; TEMP 36.9
[2021-02-08 08:16] VITALS: BP 127/80; PULSE 91; O2SAT 97
--- NOTE | 2021-02-08 09:15 | PN.OBGYN_ITS ---
Patient Problems: Active and Suspected Problems (Last Reviewed 02/04/21 @ 09:07 by Rosaura Lopez) Macrosomia affecting management of mother (Acute) 92%- 01/17/21 Genital herpes affecting (Acute) valtrex at 36 weeks Abnormal glucose affecting (Acute) NL 3gtt Anxiety during (Acute) encouraged counseling; 09/10 declines meds. Subjective: Patient doing well without complaints. Tolerating PO. Ambulating and voiding without difficulty. Breast feeding well. Denies chest pain, shortness of breath, calf pain/swelling, fevers, chills, lightheadedness. - Physical Exam Vitals/I&O's: Vital Signs Temp Pulse Resp BP Pulse Ox 98.4 F 91 16 127/80 H 97 02/08/21 08:15 02/08/21 08:16 02/08/21 08:15 02/08/21 08:16 02/08/21 08:16 Oxygen Delivery Method Room Air Weight: 240 lb 4.862 oz Body Mass Index (BMI) 41.2 Intake and Output for Last 24 Hours 02/06/21 02/07/21 02/08/21 23:59 23:59 23:59 Intake Total 4985.30 / 4985.30 973.33 / 973.33 Output Total 2650 / 2650 500 / 500 Balance 2335.30 / 2335.30 473.33 / 473.33 General: Alert, Oriented x3, Cooperative, No apparent distress, Well developed, Well nourished HEENT: Atraumatic, PERRLA, EOMI, Normocephalic Neck: Supple, No JVD Lungs: Normal air movement Cardiovascular: Regular rate Abdomen: Soft, Non Tender, Non-Distended, - - incision c/d/i, fundus firm Extremities: No edema, No Calf Tenderness Neurological: Cranial nerves II-XII grossly intact, Neuro grossly intact Psych/Mental Status: Normal Affect, Appropriate Microbiology Past 72 Hours 02/05/21 08:05 Mucosa - Nose SARS-CoV-2 Antigen (Rapid) - Final Current Medications Acetaminophen (Acetaminophen 500 Mg Tablet) 1,000 mg PO Q6 HEATHER Last Admin: 02/08/21 07:07 Dose: 1,000 mg Documented by: Bisacodyl (Bisacodyl 10 Mg Suppository) 10 mg RC UD PRN PRN Reason: If no BM Enoxaparin Sodium (Enoxaparin 40 Mg/0.4 Ml Syringe) 40 mg SC BID [facility] Last Admin: 02/07/21 21:25 Dose: 40 mg Documented by: Hydrocortisone (Hydrocortisone 2.5% Crm) 1 applic TOPICAL TID PRN PRN; Protocol PRN Reason: Discomfort Methylergonovine Maleate (Methylergonovine 0.2 Mg/Ml Ampul) 0.2 mg IM X1 PRN PRN Reason: Uterine Atony Naloxone HCl (Naloxone 0.4 Mg/Ml Syringe) 0.02 mg IV Q1M PRN PRN Reason: RR <10 and pt unresponsive Naproxen (Naproxen 250 Mg Tablet) 500 mg PO Q8H [facility] Last Admin: 02/08/21 04:30 Dose: 500 mg Documented by: Ondansetron HCl (Ondansetron 4 Mg/2 Ml Vial) 4 mg IV Q4H PRN PRN PRN Reason: Nausea Last Admin: 02/06/21 11:42 Dose: 4 mg Documented by: Oxycodone HCl (Oxycodone 5 Mg Tablet) 5 - 10 mg PO Q4H PRN PRN PRN Reason: Pain Score 4-10 Last Admin: 02/08/21 07:13 Dose: 10 mg Documented by: Prochlorperazine Edisylate (Prochlorperazine 10 Mg/2 Ml Vial) 10 mg IV Q6H PRN PRN PRN Reason: NAUSEA Senna/Docusate Sodium (Senna/Docusate Sodium 1 Tablet) 0 tablet PO DAILY [facility] Last Admin: 02/07/21 11:35 Dose: 1 tablet Documented by: Simethicone (Simethicone 80 Mg Tablet) 80 mg PO HS PRN PRN Reason: Indigestion/stomach pain Last Admin: 02/07/21 17:01 Dose: 80 mg Documented by: Sodium Chloride (0.9% Saline Lock 10 Ml Syringe) 5 - 15 ml IV UD PRN PRN Reason: SALINE FLUSH Last Admin: 02/07/21 06:58 Dose: 10 ml Documented by: Medical Necessity - Tobacco Use Smoking Status: Former smoker Assessment/Plan All Active Problems (Last Reviewed 02/04/21 @ 09:07 by Rosaura Lopez) Cephalopelvic disproportion (Acute) Macrosomia affecting management of mother (Acute) Genital herpes affecting (Acute) Abnormal glucose affecting (Acute) Anxiety during (Acute) 36 weeks gestation of (Resolved) COVID-19 affecting , antepartum (Resolved) LGA (large for gestational age) fetus affecting management of mother (Resolved) Obesity affecting (Resolved) (Resolved) Supervision of high-risk (Resolved) s/p LTCS PPD # 2 1. routine post care 2. breast feeding- support given 3. rh positive 4. rubella immune
== END 2021-02-08 10:10 | disposition home or self-care (01) | DRG 787 ==
PROVIDERS: Admitting Provider Obstetrics & Gynecology; PCP Student in an Organized Health Care Education/Training Program; Referring Provider Obstetrics & Gynecology; Visit Provider Obstetrics & Gynecology
DX: O36.63X0 Maternal care for excessive fetal growth, third trimester, not applicable or unspecified (principal); O98.32 Other infections with a predominantly sexual mode of transmission complicating childbirth; A60.09 Herpesviral infection of other urogenital tract; O76 Abnormality in fetal heart rate and rhythm complicating labor and delivery; O62.1 Secondary uterine inertia; O65.9 Obstructed labor due to maternal pelvic abnormality, unspecified; O69.81X0 Labor and delivery complicated by cord around neck, without compression, not applicable or unspecified; O99.344 Other mental disorders complicating childbirth; F41.9 Anxiety disorder, unspecified; O99.214 Obesity complicating childbirth; E66.01 Morbid (severe) obesity due to excess calories; Z87.891 Personal history of nicotine dependence; Z3A.39 39 weeks gestation of pregnancy; Z37.0 Single live birth; Z86.16 Personal history of COVID-19
CPT/HCPCS: 59025; 59050; 85025; 85027; 86850; 86900; 86901; 87426; 99218; 99251; J7120; A4216; G0378; G0463; J2405

== ENCOUNTER → 2022-07-15 | Outpatient (CLI) | payer OTHER, SELFPAY ==
[2022-07-15 08:43] LABS: Absolute Lymphocyte Count 2.59 X10^3/uL (0.83-4.51); Absolute Neutrophil Count 3.6 X10^3/uL (2.0-7.7); Basophil# 0.02 X10^3/uL; Basophil% 0.3 % (0-1); Eosinophil# 0.08 X10^3/uL; Eosinophils% 1.2 % (0-5); Hematocrit 42.4 % (37-47); Hemoglobin 13.8 g/dL (12.0-15.0); Lymphocyte # 2.59 X10^3/ul (0.83-4.51); Lymphocyte % 38.6 % (19-41); Mean Corp Hgb Conc 32.5 g/dL (32-36); Mean Corpuscular Hgb 28.9 pg (27.0-32.0); Mean Corpuscular Volume 88.9 fL (81-99); Mean Platelet Vol. 10.1 fl (6.2-12.0); Monocyte# 0.44 X10^3/uL; Monocyte% 6.6 % (0-10); NRBC Flagged by Analyzer 0 % (0-5); Neutrophil # 3.56 X10^3/uL (2.7-7.7); Platelet Count 266 K/mm3 (150-450); RBC Distribution Width CV 12.6 % (11.6-14.6); RBC Distribution Width SD 40.9 fl (35.1-43.9); Red Blood Count 4.77 M/mm3 (4.2-5.4); White Blood Count 6.7 K/mm3 (4.4-11.0)
[2022-07-15 09:14] LABS: Vitamin B12 391 pg/mL (211-911); Vitamin D,25 Hydroxy 34.4 ng/mL
[2022-07-15 09:18] LABS: Hemoglobin A1c 4.9 % (3.8-5.6)
[2022-07-15 09:21] LABS: ALB/GLOB Ratio 0.9 RATIO (0.9-2.4); AST(SGOT) 14 U/L (15-37); Alanine Aminotransfer ALT/SGPT 27 U/L (13-56); Albumin, Serum 3.7 g/dL (3.2-5.0); Alkaline Phosphatase 60 U/L (45-117); Anion Gap 11 (5-15); BUN 10 mg/dL (7-18); BUN/Creat Ratio 13.2 RATIO (10-20); Calcium,Total 8.5 mg/dL (8.5-10.1); Chloride 104 mmol/L (98-107); Cholesterol 180 mg/dL (200); Creatinine, Serum 0.76 mg/dL (0.55-1.02); EST Glomerular Filtration Rate 98 mL/min (>60); Est Glom Filt Rate - Afr Amer 118 mL/min (>60); Globulin 4.1 g/dL (2.2-4.2); Glucose 87 mg/dL (74-106); High Density Lipoprotein 57 mg/dL; Iron 126 ug/dL (50-170); Iron Binding Capacity,Total 367 ug/dL (250-450); Potassium 3.7 mmol/L (3.5-5.1); Protein, Total 7.8 g/dL (6.4-8.2); Sodium Level 138 mmol/L (136-145); Thyroid Stim Hormone (TSH) 2.36 uIU/mL (0.358-3.74); Triglycerides 174 mg/dL; Very Low Density Lipoprotein 35 mg/dL (5-40)
== END | disposition home or self-care (01) ==
LOC: LAB 08:00
PROVIDERS: PCP Student in an Organized Health Care Education/Training Program; Referring Provider Student in an Organized Health Care Education/Training Program; Visit Provider Student in an Organized Health Care Education/Training Program
DX: Z00.00 Encounter for general adult medical examination without abnormal findings (principal); R53.83 Other fatigue
CPT/HCPCS: 36415; 80053; 80061; 82306; 82607; 83036; 83540; 83550; 84439; 84443; 85025

== ENCOUNTER → 2022-08-25 | Outpatient (CLI) | payer OTHER, SELFPAY | END | disposition home or self-care (01) | PROVIDERS: PCP Student in an Organized Health Care Education/Training Program; Referring Provider Nurse Practitioner Women's Health; Visit Provider Nurse Practitioner Women's Health | DX: R10.2 Pelvic and perineal pain (principal); N39.0 Urinary tract infection, site not specified | CPT/HCPCS: 87070; 87086; 87088; 87205 ==

== ENCOUNTER → 2022-08-28 | Outpatient (CLI) | payer OTHER, SELFPAY ==
[2022-09-04 17:29] LABS: HPV Reflexed? NOT INDICATED
== END | disposition home or self-care (01) ==
LOC: LABSPEC 16:32
PROVIDERS: PCP Student in an Organized Health Care Education/Training Program; Visit Provider Nurse Practitioner Women's Health
DX: Z12.4 Encounter for screening for malignant neoplasm of cervix (principal)
CPT/HCPCS: 88175; G0145

== ENCOUNTER 2022-09-04 21:32 | Emergency (ER) | payer OTHER, SELFPAY ==
[2022-09-04 21:32] VITALS: BP 151/90; PULSE 110; RESP 18; TEMP 36.2; O2SAT 97; BMI 36.8
[2022-09-04 21:47] VITALS: PULSE 97; O2SAT 99
[2022-09-04 21:51] LABS: Mucous, Urine 0 SEEN /hpf (<or=2+); Red Blood Cells-Urine 0 SEEN /hpf (0-5); White Blood Cells 0 SEEN /hpf (0-5)
[2022-09-04 21:58] LABS: Color, Urine Straw (Yellow); Glucose, Dipstick Normal (Normal); Ketone-Dipstick Negative (Negative); Leukocyte Esterase-Dipstick Negative /ul (Negative); Nitrite-Dipstick Negative (Negative); Occult Blood-Urine Negative /ul (Negative); Protein-Dipstick Negative (Negative); Specific Gravity, Urine 1.005 (1.002-1.030); Urine Bilirubin Dipstick Negative (Negative); Urine Clarity Clear (Clear); Urine Urobilinogen Normal (Normal)
[2022-09-04 22:13] LABS: Bacteria RARE /hpf (None Seen); Squamous Epithelial Cells - UA 0-5 SEEN /hpf (5-10)
--- NOTE | 2022-09-04 22:14 | CT_ITS ---
INDICATION: ? Pyelonephritis EXAMINATION: CT ABDOMEN AND PELVIS WITH CONTRAST - CT Abdomen And Pelvis W/ Contrast Injection TECHNIQUE: Helically acquired images were obtained of the abdomen and pelvis following IV contrast. A radiation dose optimization technique was used for this scan. IV Contrast dosage and agent: 100 mL Isovue-370 Oral contrast: None. COMPARISON: None. FINDINGS: LOWER CHEST: Lung bases are clear. No cardiomegaly or pericardial effusion. LIVER: Homogeneous. Borderline hepatomegaly. No focal mass. GALLBLADDER AND BILIARY TREE: Absent gallbladder. No intra- or extrahepatic biliary ductal dilation. PANCREAS: No focal cystic or solid mass. SPLEEN: Normal size without focal cystic or solid mass. ADRENAL GLANDS: No nodules. KIDNEYS AND URETERS: Normal renal size and position. No hydronephrosis. PERITONEUM: No ascites or free air. No other fluid collection. BOWEL: No evidence of acute appendicitis. No stomach or bowel distension. No focal inflammatory change. LYMPH NODES: No enlarged mesenteric or retroperitoneal lymph nodes. VESSELS: Aorta is non-dilated. URINARY BLADDER: Unremarkable. REPRODUCTIVE ORGANS: Right ovarian 2.4 cm involuting hemorrhagic cyst. Unremarkable left ovary with small follicle. Unremarkable uterus. ABDOMINAL WALL: Fat-containing umbilical hernia without inflammation.. BONES: No lytic or blastic abnormality. CT/Abdomen/Pelvis W IV Cont ONLY IMPRESSION: 2.4 cm involuting right ovarian hemorrhagic cyst without significant pelvic free fluid. No acute renal finding. Please note that CT does not exclude clinical pyelonephritis. Correlate with exam. Borderline hepatomegaly. Otherwise unremarkable liver. Fat-containing umbilical hernia without inflammation. Electronically Signed: Pedro Ortiz MD at 23:46 EDT ,
--- NOTE | 2022-09-04 22:16 | EX.ED.DYSGE1 ---
HPI History of Present Illness Chief Complaint: Complaint Narrative Narrative: Patient is a 27-year-old female with past medical history of anxiety. She states starting roughly 1 month ago she developed urinary symptoms such as frequency and dysuria. She went to an urgent care and was placed on a 7-day course of Keflex. She states she took 5 days and felt fine so she stopped. She states a few weeks later she began with repeat urinary symptoms and therefore was placed on a 7-day course of Macrobid. She states she finished this and felt better for about 2 days without any symptoms of frequency urgency or dysuria started once again. She states now she is having some mild back pain and has concerned that she is having recurrent urinary tract infections which have made its way to her kidney and come in for evaluation [facility] Medical History Acne Anxiety Bulimia nervosa Chronic motor or vocal tic disorder Enteritis due to Rotavirus Home Medications vitamin#30 30 mg iron-10 mg iron-folic acid 1 mg-omg3 capsule 1 cap PO DAILY Check with primary doctor 07/11/20 [History Last Taken 02/04/21 21:00] naproxen 250 mg tablet 250 - 500 mg PO Q8H PRN PRN MILD PAIN #30 TABLETS 02/06/21 [Rx Last Taken Unknown] clotrimazole 1 % topical cream 1 applic topical BID 2 weeks #30 grams 03/05/21 [Rx Last Taken Unknown] phenazopyridine 200 mg tablet (Pyridium) 200 mg PO TID #12 tabs 09/05/22 [Rx Last Taken Unknown] Allergy/AdvReac Type Severity Reaction Status Date / Time No Known Allergies Allergy Verified 09/04/22 21:35 Family History Brother Asthma Allergies Grandfather Diabetes Prostate cancer Surgical History History of low transverse section History of nasal surgery Status post cholecystectomy Social History Smoking Status: Former smoker alcohol intake: current details: pre preganncy substance use type: does not use caffeine: Yes what type of physical activity do you participate in: walking seatbelt use: always do you feel safe at home: Yes additional social history: [employer] ROS ROS ED Constitutional Constitutional ED: Denies chills or fever(s) ENT ENT ED: Denies sore throat Cardiovascular Cardiovascular: Denies chest pain Respiratory/Chest Respiratory/Chest: Denies cough or dyspnea Gastrointestinal Gastrointestinal: Reports abdominal pain; Denies diarrhea, nausea or vomiting Genitourinary Genitourinary ED: Reports dysuria and urinary frequency; Denies hematuria Musculoskeletal Musculoskeletal: Reports back pain; Denies myalgias Integumentary Denies rash Neurologic Neurologic: Denies headache(s) Psychiatric Psychiatric: Reports anxiety Hematologic/Lymphatic Hematologic/Lymphatic: Denies easy bleeding or easy bruising EXAM Physical Exam Const Vital Signs: 09/04/22 21:32 09/04/22 21:47 09/05/22 00:17 Temperature 97.2 F L Temperature Source Temporal Pulse Rate 110 H 97 82 Respiratory Rate 18 16 Blood Pressure 151/90 H 111/86 H Blood Pressure Mean 110 94 Pulse Ox 97 99 97 Oxygen Delivery Method Room Air Room Air Room Air Positive well nourished and well developed General Appearance ED: well developed Eyes PERRL and EOMs intact bilaterally Neck supple Resp normal respiratory effort and clear to auscultation bilaterally Cardio regular rate and regular rhythm Rate: other Other Details: Radial pulses are plus 2 out of 4 bilaterally are equal and symmetric GI non-distended GI Narrative: Mild tenderness to palpation in the suprapubic region without voluntary guarding or rigidity. No organomegaly. No pulsatile mass or fluid wave Auscultation: normoactive bowel sounds Palpation: soft Back/Spine Back/Spine Narrative: Faint CVA tenderness bilaterally Extremity normal to inspection Neuro oriented x3 and CN's II-XII intact bilaterally Sensorium / Orientation: alert Psych Psych Narrative: Patient has a nervous/anxious affect Skin no rashes or lesions noted MDM MDM MDM Narrative Medical decision making narrative: Patient presented to the ER afebrile with a nonfocal examination. She reported return of urinary symptoms and also had vague back pain. As this would been the third event in a short timeframe I did elect to check basic laboratory studies and even performed a CT scan to check for inflammation around the kidneys or possible kidney stone. Blood work revealed no clinically significant findings with normal white count no left shift no signs of acute kidney injury. Urine did not suggest any acute infection. CT scan showed a involuting right hemorrhagic ovarian cyst but otherwise was noncontributory. Therefore at this time I do not feel is appropriate to start her on antibiotics as her urine does not suggest infection. She does not have signs of urosepsis or acute kidney injury. CAT scan shows no anatomical abnormality other than an ovarian cyst. Patient's urine be sent for culture because of her dysuria symptoms but she should follow-up with urology to discuss further testing and possible treatment options for her recurrent symptoms Lab Data Attestation: I reviewed the patient's lab results. Labs: Laboratory Results - last 24 hr 09/04/22 09/04/22 09/04/22 21:40 21:40 22:24 WBC 10.1 RBC 4.85 Hgb 14.1 Hct 42.0 MCV 86.6 MCH 29.1 MCHC 33.6 RDW Std Deviation 38.5 RDW Coeff of Joceline 12.1 Plt Count 262 MPV 10.5 Immature Gran % (Auto) 0.300 Neut % (Auto) 66.8 Lymph % (Auto) 25.3 [place] % (Auto) 6.9 Eos % (Auto) 0.5 Baso % (Auto) 0.2 Absolute Neuts (auto) 6.8 Absolute Lymphs (auto) 2.57 Nucleated RBC % 0 Sodium Potassium Chloride Carbon Dioxide Anion Gap BUN Creatinine Estim Creat Clear Calc Est GFR (MDRD) Af Amer Est GFR (MDRD) Non-Af BUN/Creatinine Ratio Glucose Calcium Urine Color Straw Urine Clarity Clear Urine pH 7.0 Ur Specific [place] 1.005 Urine Protein Negative Urine Glucose (UA) Normal Urine Ketones Negative Urine Occult Blood Negative Urine Nitrite Negative Urine Bilirubin Negative Urine Urobilinogen Normal Ur Leukocyte Esterase Negative Urine RBC 0 SEEN Urine WBC 0 SEEN Ur Squamous Epith Cells 0-5 SEEN Urine Bacteria RARE Urine Mucus 0 SEEN Urine Test Negative 09/04/22 22:24 WBC RBC Hgb Hct MCV MCH MCHC RDW Std Deviation RDW Coeff of Joceline Plt Count MPV Immature Gran % (Auto) Neut % (Auto) Lymph % (Auto) [place] % (Auto) Eos % (Auto) Baso % (Auto) Absolute Neuts (auto) Absolute Lymphs (auto) Nucleated RBC % Sodium 139 Potassium 3.5 Chloride 106 Carbon Dioxide 24.0 Anion Gap 9 BUN 10 Creatinine 0.62 Estim Creat Clear Calc 117.70 Est GFR (MDRD) Af Amer 148 Est GFR (MDRD) Non-Af 123 BUN/Creatinine Ratio 16.1 Glucose 96 Calcium 9.1 Urine Color Urine Clarity Urine pH Ur Specific [place] Urine Protein Urine Glucose (UA) Urine Ketones Urine Occult Blood Urine Nitrite Urine Bilirubin Urine Urobilinogen Ur Leukocyte Esterase Urine RBC Urine WBC Ur Squamous Epith Cells Urine Bacteria Urine Mucus Urine Test Radiography Diagnostic Testing: Clinical Impression(s) from Imaging Studies Abdomen/Pelvis CT 09/04/22 22:14 IMPRESSION: 2.4 cm involuting right ovarian hemorrhagic cyst without significant pelvic free fluid. No acute renal finding. Please note that CT does not exclude clinical pyelonephritis. Correlate with exam. Borderline hepatomegaly. Otherwise unremarkable liver. Fat-containing umbilical hernia without inflammation. Electronically Signed: Pedro Ortiz MD at 23:46 EDT Reading Location ID and State: [facility] / [place] Tel , Service support , Discharge Plan Triage Chief Complaint: Complaint ED Provider: Devyn Lugo Dx/Rx/DC Orders Clinical Impression: Dysuria, Cyst of right ovary, Anxiety Instructions: Dysuria Prescriptions: New phenazopyridine [Pyridium] 200 mg tablet 200 mg PO TID Qty: 12 0RF No Action vitamin#30 30 mg iron-10 mg iron-folic acid 1 mg-omg3 capsule 30 mg iron-10 mg iron-1 mg capsule 1 cap PO DAILY MDD naproxen 250 MG tablet 250 - 500 mg PO Q8H PRN PRN (Reason: MILD PAIN) Qty: 30 1RF clotrimazole 1 % cream 1 applic TOPICAL BID 14 Days Qty: 30 1RF Primary Care Provider: Alden Schulz Referrals: Erin Davison MD [Med Staff - Active Staff] - Alden Schulz DO [Primary Care Provider] - Activity Restrictions/Additional Instructions: Please follow up with urology for further testing and return to the ER should you have any further concerns Disposition Disposition: Home, Self Care Discharge Date/Time: 09/05/22 00:29
[2022-09-04] MEDS: 0.9% Normal Saline 1,000 ML 999 ML IV (22:25)
[2022-09-04 22:34] LABS: Absolute Lymphocyte Count 2.57 X10^3/uL (0.83-4.51); Absolute Neutrophil Count 6.8 X10^3/uL (2.0-7.7); Basophil# 0.02 X10^3/uL; Basophil% 0.2 % (0-1); Eosinophil# 0.05 X10^3/uL; Eosinophils% 0.5 % (0-5); Hemoglobin 14.1 g/dL (12.0-15.0); Lymphocyte # 2.57 X10^3/ul (0.83-4.51); Lymphocyte % 25.3 % (19-41); Mean Corp Hgb Conc 33.6 g/dL (32-36); Mean Corpuscular Hgb 29.1 pg (27.0-32.0); Mean Corpuscular Volume 86.6 fL (81-99); Mean Platelet Vol. 10.5 fl (6.2-12.0); Monocyte% 6.9 % (0-10); NRBC Flagged by Analyzer 0 % (0-5); Neutrophil # 6.77 X10^3/uL (2.7-7.7); Neutrophil % 66.8 % (47-70); Platelet Count 262 K/mm3 (150-450); RBC Distribution Width CV 12.1 % (11.6-14.6); RBC Distribution Width SD 38.5 fl (35.1-43.9); Red Blood Count 4.85 M/mm3 (4.2-5.4); White Blood Count 10.1 K/mm3 (4.4-11.0)
[2022-09-04 22:41] LABS: Internal QC Validated? YES +Cl - CLEAR BKGD; Pregnancy, Urine Negative Negative
[2022-09-04 22:48] LABS: Anion Gap 9 (5-15); BUN 10 mg/dL (7-18); BUN/Creat Ratio 16.1 RATIO (10-20); Calcium,Total 9.1 mg/dL (8.5-10.1); Chloride 106 mmol/L (98-107); Creatinine, Serum 0.62 mg/dL (0.55-1.02); EST Glomerular Filtration Rate 123 mL/min (>60); Est Glom Filt Rate - Afr Amer 148 mL/min (>60); Glucose 96 mg/dL (74-106); Potassium 3.5 mmol/L (3.5-5.1); Sodium Level 139 mmol/L (136-145)
[2022-09-05 00:17] VITALS: BP 111/86; PULSE 82; RESP 16; O2SAT 97
[2022-09-05] MEDS: Phenazopyridine 95 MG Tablet 190 MG PO (00:22)
== END 2022-09-05 00:29 | disposition home or self-care (01) ==
PROVIDERS: Emergency Provider Emergency Medicine; PCP Student in an Organized Health Care Education/Training Program; Visit Provider Emergency Medicine
DX: R30.0 Dysuria (principal); N83.201 Unspecified ovarian cyst, right side; F41.9 Anxiety disorder, unspecified; M54.9 Dorsalgia, unspecified; Z79.1 Long term (current) use of non-steroidal anti-inflammatories (NSAID); Z79.899 Other long term (current) drug therapy; Z87.891 Personal history of nicotine dependence
CPT/HCPCS: 74177; 80048; 81001; 81025; 85025; 87086; 96360; 96361; 99283; J7030; Q9967; A4216

== ENCOUNTER → 2022-11-27 | Outpatient (CLI) | payer OTHER, SELFPAY ==
[2022-12-01 04:06] LABS: Chlamydia By Nucleic Acid AMP Negative (Negative)
[2022-12-01 22:25] LABS: Gonococcus By Nucleic Acid AMP Negative (Negative)
== END | disposition home or self-care (01) ==
LOC: LABSPEC 16:41
PROVIDERS: PCP Student in an Organized Health Care Education/Training Program; Referring Provider Obstetrics & Gynecology; Visit Provider Obstetrics & Gynecology
DX: Z34.90 Encounter for supervision of normal pregnancy, unspecified, unspecified trimester (principal)
CPT/HCPCS: 87086; 87491; 87591

== ENCOUNTER → 2022-12-17 | Outpatient (CLI) | payer OTHER, SELFPAY ==
[2022-12-17 16:02] LABS: Absolute Lymphocyte Count 2.29 X10^3/uL (0.83-4.51); Basophil# 0.01 X10^3/uL; Basophil% 0.1 % (0-1); Eosinophil# 0.04 X10^3/uL; Eosinophils% 0.5 % (0-5); Hematocrit 36.9 % (37-47); Hemoglobin 12.1 g/dL (12.0-15.0); Lymphocyte # 2.29 X10^3/ul (0.83-4.51); Lymphocyte % 29.1 % (19-41); Mean Corp Hgb Conc 32.8 g/dL (32-36); Mean Corpuscular Hgb 28.7 pg (27.0-32.0); Mean Corpuscular Volume 87.6 fL (81-99); Mean Platelet Vol. 10.8 fl (6.2-12.0); Monocyte% 6.3 % (0-10); NRBC Flagged by Analyzer 0 % (0-5); Neutrophil % 63.5 % (47-70); Platelet Count 235 K/mm3 (150-450); RBC Distribution Width CV 12.8 % (11.6-14.6); Red Blood Count 4.21 M/mm3 (4.2-5.4); White Blood Count 7.9 K/mm3 (4.4-11.0)
[2022-12-17 16:33] LABS: Glucose Challenge Gest 1H 50g 133 mg/dL (70-140)
[2022-12-17 17:19] LABS: HIV - WCH Non-Reactive (Nonreactive); Hepatitis B Surface Antigen Non-Reactive (Nonreactive); Hepatitis C Antibody Non-Reactive (Nonreactive); Rubella IgG Reactive (Nonreactive); Syphilis Antibodies Non-reactive
== END | disposition home or self-care (01) ==
PROVIDERS: PCP Student in an Organized Health Care Education/Training Program; Visit Provider Obstetrics & Gynecology
DX: Z34.90 Encounter for supervision of normal pregnancy, unspecified, unspecified trimester (principal)
CPT/HCPCS: 36415; 82950; 85025; 86703; 86762; 86780; 86803; 86850; 86900; 86901; 87340

== ENCOUNTER → 2023-03-18 | Outpatient (CLI) | payer OTHER, SELFPAY ==
[2023-03-18 10:29] LABS: Absolute Lymphocyte Count 1.75 X10^3/uL (0.83-4.51); Absolute Neutrophil Count 6.9 X10^3/uL (2.0-7.7); Basophil# 0.01 X10^3/uL; Basophil% 0.1 % (0-1); Eosinophil# 0.03 X10^3/uL; Eosinophils% 0.3 % (0-5); Hematocrit 38.3 % (37-47); Hemoglobin 12.9 g/dL (12.0-15.0); Lymphocyte # 1.75 X10^3/ul (0.83-4.51); Mean Corp Hgb Conc 33.7 g/dL (32-36); Mean Corpuscular Hgb 29.5 pg (27.0-32.0); Mean Corpuscular Volume 87.4 fL (81-99); Mean Platelet Vol. 10.9 fl (6.2-12.0); Monocyte# 0.48 X10^3/uL; Monocyte% 5.2 % (0-10); NRBC Flagged by Analyzer 0 % (0-5); Neutrophil % 74.9 % (47-70); Platelet Count 220 K/mm3 (150-450); RBC Distribution Width CV 12.8 % (11.6-14.6); RBC Distribution Width SD 41.3 fl (35.1-43.9); Red Blood Count 4.38 M/mm3 (4.2-5.4); White Blood Count 9.2 K/mm3 (4.4-11.0)
[2023-03-18 10:54] LABS: Glucose Challenge Gest 1H 50g 104 mg/dL (70-140)
[2023-03-18 11:26] LABS: HIV - WCH Non-Reactive (Nonreactive); Syphilis Antibodies Non-reactive
== END | disposition home or self-care (01) ==
LOC: LAB 09:47
PROVIDERS: PCP Student in an Organized Health Care Education/Training Program; Referring Provider Obstetrics & Gynecology; Visit Provider Obstetrics & Gynecology
DX: Z34.92 Encounter for supervision of normal pregnancy, unspecified, second trimester (principal); Z3A.22 22 weeks gestation of pregnancy
CPT/HCPCS: 36415; 82950; 85025; 86703; 86780

== ENCOUNTER → 2023-05-25 | Outpatient (CLI) | payer OTHER, SELFPAY ==
--- NOTE | 2023-05-25 11:57 | US_ITS ---
INDICATION: growth -- 36 Weeks COMPARISON: OB ultrasound 11/23/2020. FINDINGS: 55 barrientos scale ultrasound images demonstrate single live intrauterine in cephalic presentation measuring at 38 weeks +1 day average ultrasound age. Estimated weight 30 75 g, 73rd percentile. heart rate 170 bpm. Fluid-filled stomach. Adequate amniotic fluid for gestational age, KANNAN 15 cm deepest vertical pocket 4.7 cm. Anterior placenta is unremarkable for gestational age. Uterine myometrium is unremarkable. Uterine cervix is long and closed measuring 3.2 cm in length. Bilateral ovaries are not visualized. No significant free fluid. US/OB Limited With Biometrics IMPRESSION: Single live intrauterine in cephalic presentation measuring at 38 weeks +1 day average ultrasound age. Estimated weight 3075 g, 73rd percentile. Electronically Signed: Ed Norman MD at 23:30 EDT ,
== END | disposition home or self-care (01) ==
PROVIDERS: PCP Student in an Organized Health Care Education/Training Program; Referring Provider Nurse Practitioner Women's Health; Visit Provider Nurse Practitioner Women's Health
DX: O99.213 Obesity complicating pregnancy, third trimester (principal); E66.9 Obesity, unspecified; Z3A.36 36 weeks gestation of pregnancy
CPT/HCPCS: 76816; 87081

== ENCOUNTER 2023-06-18 05:37 | Inpatient (IN) | payer OTHER, SELFPAY ==
[2023-06-18] VITALS (19 sets, daily range): BP systolic 90–120; BP diastolic 53–75; PULSE 67–108; RESP 14–16; TEMP 36.1–36.7; O2SAT 95–100; BMI 39.8
[2023-06-18] MEDS: Lactated Ringers 1,000 ML 999 ML IV (06:05)
[2023-06-18 06:20] LABS: Absolute Lymphocyte Count 1.26 X10^3/uL (0.83-4.51); Absolute Neutrophil Count 6.3 X10^3/uL (2.0-7.7); Basophil# 0.02 X10^3/uL; Basophil% 0.2 % (0-1); Eosinophil# 0.08 X10^3/uL; Hematocrit 37.7 % (37-47); Hemoglobin 12.6 g/dL (12.0-15.0); Lymphocyte # 1.26 X10^3/ul (0.83-4.51); Mean Corp Hgb Conc 33.4 g/dL (32-36); Mean Corpuscular Hgb 29.5 pg (27.0-32.0); Mean Corpuscular Volume 88.3 fL (81-99); Mean Platelet Vol. 11.7 fl (6.2-12.0); Monocyte# 0.64 X10^3/uL; Monocyte% 7.6 % (0-10); NRBC Flagged by Analyzer 0 % (0-5); Neutrophil # 6.32 X10^3/uL (2.7-7.7); Neutrophil % 75.5 % (47-70); Platelet Count 164 K/mm3 (150-450); RBC Distribution Width CV 13.2 % (11.6-14.6); RBC Distribution Width SD 42.7 fl (35.1-43.9); Red Blood Count 4.27 M/mm3 (4.2-5.4); White Blood Count 8.4 K/mm3 (4.4-11.0)
[2023-06-18] MEDS: Acetaminophen 500 MG Tablet 1000 MG PO ×4 (06:50→23:15)
[2023-06-18] MEDS: Sodium Citrate/Citric Acid 30 ML UDC PO (06:51)
[2023-06-18] MEDS: Lactated Ringers 1,000 ML 150 ML IV (07:10)
[2023-06-18] MEDS: Cefazolin 2 GM in 0.9% Normal Saline 100 ML IV (07:29)
--- NOTE | 2023-06-18 07:31 | HP.PCM.OB_ITS ---
HPI - General General Date of Admission: 06/18/23 HPI Narrative ZE KUMAR, is a 27 F who presents for RLTCS denies any vb lof admits good fm Maternal Data Information SILVA Calculator 2 Estimated Delivery Date Method Current WG Current Estimate 06/21/23 LMP (Certain) 39w 4d PFSH PFSH Medical History Acne Anxiety Bulimia nervosa Chronic motor or vocal tic disorder Enteritis due to Rotavirus Home Medications vitamin#30 30 mg iron-10 mg iron-folic acid 1 mg-omg3 capsule 1 cap PO DAILY Check with primary doctor 07/11/20 [History Last Taken 02/04/21 21:00] valacyclovir 500 mg tablet (Valtrex) 500 mg PO BID #60 tabs 05/13/23 [Rx Last Taken Unknown] Allergy/AdvReac Type Severity Reaction Status Date / Time No Known Allergies Allergy Verified 06/18/23 06:02 Family History Brother Asthma Allergies Grandfather Diabetes Prostate cancer Surgical History History of low transverse section History of nasal surgery Status post cholecystectomy Social History adopted: No household members: spouse and children housing: house number of children: 1 current occupational status: employed current occupation: Mental Health @ [employer] current occupational exposures/hazards: No pets and animals: Yes (Not managing litterbox ) pets and animals: cat(s) history of recent travel: No sexually active: Yes Smoking Status: Never smoker alcohol intake: current details: pre preganncy 1-2glasses per month substance use type: does not use well-balanced diet: daily or most days caffeine: Yes (every other day) Type: coffee Number of servings: 1 eating out: rarely or never during the past year weight has: remained stable what type of physical activity do you participate in: walking frequency: 3-4 times per week duration: 15-30 minutes/day heladio/orthodoxy: Buddhism seatbelt use: always do you feel safe at home: Yes additional social history: Juliana Garland Surveying History 2 Elective abortions Hx Para 1 Spontaneous abortions Hx # Term Pregnancies 1 Ectopic pregnancies Hx # Pregnancies Multiple births # of living children 1 Past Pregnancies Del. Date Name GA/Weeks Outcome Route Bth Weight Gen Labor Lgth Anesthesia Del Christianoatn Provider FOB 02/06/21 Kelvin Kumar 39 live - full term C-sect ion 8lb 5 ounces Male spinal [employer] Froy Quevedo Delivery Date: 02/06/21 Last Updated by: Aleah Mclain LTCS CPD Visit Details Expected Delivery Route/Plan RLTCS unless early labor 37 or less GA and EFW significantly less because of CPD. scheduled 06/18 with SM at 730 Plans Covid status: discussed Flu vaccine: discussed Tdap vaccine: declined Rhogam: na LARC form signed: declined movement and labor precautions reviewed. Problem list reviewed and updated with the most current plan of care details and appropriate orders placed. Relevant counseling for the gestational age provided. Continue routine care and follow up unless otherwise noted in visit notes/problem list details OB Flowsheet Initial Weight: Not Recorded Date -?-?-?-?-?-?-?-?-?-?-?-?- EGA Weight BP Urine Prot -?-?-?-?-?-?-?-?-?-?-?-?- Glucose FHR FuHt Pres Dilation -?-?-?-?-?-?-?-?-?-?-?-?- Effaced St Visit Note 11/27/22 -?-?-?-?-?-?-?--?-?-?-?-?- 10w 4d 212 lb 128/85 -?-?-?-?-?-?-?-?-?-?-?-?- 180 -?-?-?-?-?-?-?-?-?-?-?-?- SM- CRL 3.8cm co ns with LMP 12/26/22 -?-?-?-?-?-?-?-?-?-?-?-?- 14w 5d 216 lb 127/76 Negative -?-?-?-?-?-?-?-?-?-?-?-?- Negative 155 -?-?-?-?-?-?-?-?-?-?-?-?- SM- no vb crampi ng 01/23/23 -?-?-?-?-?-?-?-?-?-?-?-?- 18w 5d 213 lb 6 oz 124/75 Nega tive -?-?-?-?-?-?-?-?-?-?-?-?- Negative 165 -?-?-?-?-?-?-?-?-?-?-?-?- JV- no lof v charley nal bleeding, or cramping. has anatomy scan on thursday. 02/16/23 -?-?-?-?-?-?-?-?-?-?-?-?- 22w 1d 217 lb 6 oz 111/81 -?-?-?-?-?-?-?-?-?-?-?-?- 150 -?-?-?-?-?-?-?-?-?-?-?-?- SM- no vb lof go od fm no regualr ctx 03/18/23 -?-?-?-?-?-?-?-?-?-?-?-?- 26w 3d 224 lb 4 oz 131/87 Nega tive -?-?-?-?-?-?-?-?-?-?-?-?- Negative 154 26 -?-?-?-?-?-?-?-?-?-?-?-?- LC- no vb/ctx/lo f. good fm. glucose pending. cbc stable. 04/16/23 -?-?-?-?-?-?-?-?-?-?-?-?- 30w 4d 227 lb 227 lb 4 oz 126/85 126/85 Negative -?-?-?-?-?-?-?-?-?-?-?-?- Negative 163 32 -?-?-?-?-?-?-?-?-?-?-?-?- JV- pt planning to try unless goes past 40 weeks. no complaints. 04/29/23 -?-?-?-?-?-?-?-?-?-?-?-?- 32w 3d 228 lb 8 oz 120/74 Nega tive -?-?--?-?-?-?-?-?-?-?-?-?- Negative 149 33 -?-?-?-?-?-?-?-?-?-?-?-?- MH-No Vb, LOF. G nita US at 36 wk 05/13/23 -?-?-?-?-?-?-?-?-?-?-?-?- 34w 3d 229 lb 6 oz 124/76 Nega tive -?-?-?-?-?-?-?-?-?-?-?-?- Negative 155 35 -?-?-?-?-?-?-?-?-?-?-?-?- KW- +fm, no lof/ vb/ctx. no concerns. LARC done. Valtrex ordered. 05/25/23 -?-?-?-?-?-?-?-?-?-?-?-?- 36w 1d 232 lb 4 oz 110/74 -?-?-?-?-?-?-?-?-?-?-?-?- 150 36 Cephalic 0 -?-?-?-?-?-?-?-?-?-?-?-?- SM- no vb lof go od m no lof good fm no regular ctx SM- no vb lof good m no lof good fm no regular ctx discussed scheduling csection prefers first week of june. 06/02/23 -?-?-?-?-?-?-?-?-?-?-?-?- 37w 2d 231 lb 6 oz 125/88 Trac e -?-?-?-?-?-?-?-?-?-?-?-?- Negative 140 37 Cephalic -?-?-?-?-?-?-?-?-?-?-?-?- SM- no vb lof go od fm no regular ctx 06/11/23 -?-?-?-?-?-?-?-?-?-?-?-?- 38w 4d 231 lb 6 oz 119/83 Nega tive -?-?-?-?-?-?-?-?-?-?-?-?- Negative 165 38 Cephalic 2 -?-?-?-?-?-?-?-?-?-?-?-?- 30 -3 JV- pt wan ts membranes swept today. It was not very effective due to high station and lack of effacement and caused some bleeding that was mild. labor precautions and bleeding precautions discussed. NST FHR Rate Baby A Baseline: 130 ROS Constitutional Constitutional: Reports systems reviewed and no addt'l complaints, except as documented Eyes Eyes: Denies change in vision ENT HEENT: Reports systems reviewed and no addt'l complaints, except as documented; Denies headache(s) Cardiovascular Cardiovascular: Reports systems reviewed and no addt'l complaints, except as documented; Denies chest pain or dyspnea Respiratory/Chest Respiratory/Chest: Reports systems reviewed and no addt'l complaints, except as documented Gastrointestinal Gastrointestinal: Reports systems reviewed and no addt'l complaints, except as documented; Denies abdominal pain Genitourinary Genitourinary: Reports systems reviewed and no addt'l complaints, except as documented, contractions Details: present (irregular) and movement Details: present; Denies dysuria or genital lesions Musculoskeletal Musculoskeletal: Reports systems reviewed and no addt'l complaints, except as documented Neurologic Neurologic: Reports systems reviewed and no addt'l complaints, except as documented Endocrine Endocrinology: Reports systems reviewed and no addt'l complaints, except as documented Vital Signs Vital Signs Vital Signs: 06/18/23 06:28 Temperature 97.2 F L Temperature Source Temporal Pulse Rate 108 H Respiratory Rate 15 Blood Pressure 120/75 Blood Pressure Mean 90 Blood Pressure Source Monitor Blood Pressure Position Semi-Fowlers Blood Pressure Location Left Arm Pulse Ox 98 Oxygen Delivery Method Room Air Weight Weight: 232 lb Body Mass Index (BMI) 39.8 Physical Exam Const alert, oriented x3, no apparent distress and healthy appearing HEENT normocephalic and moist oral mucous membranes Head and Scalp: atraumatic Neck full ROM, no lymphadenopathy, supple and thyroid normal General: trachea midline Lymph Lymphatic: no lymphadenopathy noted Chest inspection of chest normal Resp normal respiratory effort Cardio regular rate GI normal to inspection, nondistended, normoactive bowel sounds, soft to palpation and non-tender Inspection: gravid external exam normal Manual OB Exam: estimated gestational size appropriate, presentation cephalic, dilated, effaced and station Extremity normal to inspection General Extremity: Negative for edema Skin no rashes or lesions noted Neuro no focal motor deficits and deep tendon reflexes 2+ bilaterally Motor Exam: strength 5/5 throughout and clonus absent Psych mental status grossly normal Labs Labs Labs: Blood Type AB POSITIVE Antibody Screen NEGATIVE Hct 37.7 % (37-47) Hgb 12.6 g/dL (12.0-15.0) Pap Smear Negative Obstetrics US Syphilis Total Ab Non-reactive Rubella IgG Antibody Reactive (Nonreactive) Hep Bs Antigen Non-Reactive (Nonreactive) Chlamydia DNA (GERALDO) Negative (Negative) Neisseria gonorrhoeae DNA (GERALDO) Negative (Negative) HIV 1&2 Antibody Non-Reactive (Nonreactive) Glucose 1 Hr 50 gm 104 mg/dL (70-140) Rhogam given: No Assessment & Plan (1) Obesity affecting : COMMENT: 1 tm gct encouraged healthy weight gain (2) Previous delivery affecting : COMMENT: previous CPD 9 cm arrest. discussed plan RLTCS unless significant weight difference and early spontaneous labor. growth scan at 36 weeks(73%) (3) Umbilical hernia: COMMENT: Non symptomatic found on ED CT in August 2022 (4) Anxiety: COMMENT: no meds, counseling encouraged (5) Hx of herpes genitalis: COMMENT: valtrex at 36 weeks (6) Supervision of high risk , antepartum: COMMENT: PRR , SILVA 06/21/23, boy FINA Warren, Sae (7) : QUALIFIERS: Weeks of gestation: 37 weeks Qualified Code(s): Z3A.37 - 37 weeks gestation of COMMENT: GBS neg, declined ntd, genetic, & carrier testing. nl anatomy, nl growth 73% PLAN: Plan .proceed with RLTCS
--- NOTE | 2023-06-18 07:32 | OP.PCM_ITS ---
Assessment & Plan (1) Obesity affecting : COMMENT: 1 tm gct encouraged healthy weight gain (2) Previous delivery affecting : COMMENT: previous CPD 9 cm arrest. discussed plan RLTCS unless significant weight difference and early spontaneous labor. growth scan at 36 weeks(73%) (3) Umbilical hernia: COMMENT: Non symptomatic found on ED CT in August 2022 (4) Anxiety: COMMENT: no meds, counseling encouraged (5) Hx of herpes genitalis: COMMENT: valtrex at 36 weeks (6) Supervision of high risk , antepartum: COMMENT: PRR , SILVA 06/21/23, boy PC Kelvin, Sae (7) : QUALIFIERS: Weeks of gestation: 37 weeks Qualified Code(s): Z3A.37 - 37 weeks gestation of COMMENT: GBS neg, declined ntd, genetic, & carrier testing. nl anatomy, nl growth 73% (8) delivery delivered: COMMENT: SM RLTCS 39 boy Maternal Data Information SILVA Calculator Estimated Delivery Date Method Current WG Current Estimate 06/21/23 LMP (Certain) 39w 4d Details Operative Information Date of Procedure: 06/18/23 Pre-Operative Diagnosis: Previous Post-Operative Diagnosis: same Indications for : Repeat Elective Indications Narrative: Surgeon: Stefani Mcduffie MD Classification: Scheduled Procedure Type: low transverse rouge sifter and miller #1: Rico Esposito Type of Anesthesia: Spinal Special Medications: none Antibiotic Given: Ancef 2 grams IV x1 Drain: Geronimo to straight drain Estimated Blood Loss: 800 Fluids Replaced: crystalloid Findings Description of Procedure: Spinal anesthesia was placed without difficulty. Geronimo catheter was placed. The patient was placed in the dorsal supine position with leftward tilt. Patient was prepped and draped in the normal sterile fashion. Pfannenstiel skin incision was made with the scalpel and carried through to the underlying layer of fascia with the scalpel. Fascia was nicked in the midline and the incision extended laterally. The rectus bellies were dissected off superiorly and inferiorly with out complication both sharply and bluntly. The peritoneum was entered digitally. The incision was stretched and a low transverse uterine incision was made with the scalpel. The infant's head was delivered atraumatically followed by the anterior and posterior shoulders without complication the rest of the infant delivered. The cord was clamped and cut and the infant was handed off to awaiting nurse. The placenta was delivered spontaneously immediately following and was noted to be intact and have a three- vessel cord. The uterus was exteriorized cleared of all clots and debris, and the incision was closed in a single layer closure using #1 Monocryl with several additional figure of eights for hemostasis. The ovaries and fallopian tubes were noted to be within normal limits. The uterus was returned to the maternal abdomen and gutters were cleared of all clots and debris. The peritoneum was closed with 3-0 Monocryl in a running fashion. Gloves were changed prior to fascial closure. Fascia was closed with 0 PDS in a running fashion. Subcutaneous tissue was copiously irrigated and the skin was closed with 3-0 Monocryl in a subcuticular fashion. Mepilex dressing was applied without complication. Patient was taken to recovery in stable condition. It was discussed with the patient that based on the clinical information obtained during this encounter, combined with her history, at this time I would recommend cesareans for future deliveries if further pregnancies are desired. Amniotic Membrane Rupture Type: Artificial Amniotic Fluid Description: Clear Placenta Disposition: [facility] Cord Vessel Description: 3 Vessels Delayed Cord Clamping: Yes Complications Risks of Surgery Discussed w/Patient: Bleeding, Infection, Need for Future C- Sections and Injury to surrounding structure(s) including bowel and bladder Vaginal Delivery Complication Complications: None Admit VTE Documentation VTE Present on Admission: No VTE Mechan Device Prophylaxis: SCD's Procedures Urinary/Genital [id number]: 66060 Delivery [facility]
[2023-06-18 08:13] LABS: Syphilis Antibodies Non-reactive
--- NOTE | 2023-06-18 08:39 | DCINST_ITS ---
Discharge Instructions Diet Discharge Diet: No restrictions Activity Discharge Activity: May Not Drive (for 2 weeks or while taking narcotic pain medications.), May Shower and May Take a Tub Bath (in 7 days) May shower in (days): 0 May resume sexual activity in: 4-6 weeks Weight Bearing Status: Full weight bearing Lifting Restrictions: 20 pounds Dressing / Incision Call your doctor if your incision/area has: Continuous Slow Oozing, Sudden Increased Bleeding, Increased Pain/ Swelling, Increased Redness and Foul Smelling Discharge Call your doctor if you observe: Fever of 101 or Higher and Using more than 1 pad per hour (for 2 hours) Suture Line Care: Avoid Pulling/Pushing and Avoid Pinching/Bending Cleanse incision/area with: Soap & Water and Keep Dressing Clean & Dry Follow Up Care Please Follow Up With: Stefani Mcduffie MD When: Call [phone] to make an appointment for an incision check in 1-2 weeks. Test Results: Test results from this visit will be discussed in further detail at your follow- up appointment, if applicable. Discharge Plan Admission Admit Date/Time: 06/18/23 05:37 Attending Provider: Stefani Mcduffie Primary Care Provider: Alden Schulz Discharge Orders/Prescriptions Prescriptions: No Action vitamin#30 30 mg iron-10 mg iron-folic acid 1 mg-omg3 capsule 30 mg iron-10 mg iron-1 mg capsule 1 cap PO DAILY MDD valacyclovir [Valtrex] 500 mg tablet 500 mg PO BID Qty: 60 2RF Referrals / Follow Up: Alden Schulz DO [Primary Care Provider] -
[2023-06-18] MEDS: Oxytocin 15 Units/NS 250ml 15 UNITS/250 ML IV.SOLN 83 UNITS IV (08:47)
[2023-06-18] MEDS: Ketorolac 30 MG/ML Syringe IV ×3 (09:15→20:37)
[2023-06-18] MEDS: Lactated Ringers 1,000 ML 100 ML IV (12:02)
--- NOTE | 2023-06-18 13:15 | NURSING ---
MOB reported feeling a smooth trickle of lochia after nursing for 45 minutes. IBCLC RN in room and offered to perform fundal check and lochia assessment. MOB reports it may just be normal bleeding and her numbness from surgery may be going away, but was open to IBCLC RN performing assessment to be sure. Fundus u-1, small amount of bleeding. Dressing dry and intact. VS all WNL. MOB given education on lochia and what to expect, especially when she goes to stand with primary RN for the first time. Primary RNs updated.
[2023-06-18] MEDS: 0.9% Saline Lock 10 ML Syringe IV (20:37)
[2023-06-19] MEDS: 0.9% Saline Lock 10 ML Syringe IV (03:31)
[2023-06-19] MEDS: Ketorolac 30 MG/ML Syringe IV (03:31)
[2023-06-19 03:45] VITALS: BP 109/56; PULSE 94; RESP 15; TEMP 36.2; O2SAT 96
[2023-06-19] MEDS: Acetaminophen 500 MG Tablet 1000 MG PO ×2 (06:16→12:31)
[2023-06-19 06:28] LABS: Hematocrit 28.8 % (37-47); Hemoglobin 9.3 g/dL (12.0-15.0); Mean Corp Hgb Conc 32.3 g/dL (32-36); Mean Corpuscular Hgb 29.7 pg (27.0-32.0); Mean Platelet Vol. 11.2 fl (6.2-12.0); Platelet Count 129 K/mm3 (150-450); RBC Distribution Width CV 13.5 % (11.6-14.6); Red Blood Count 3.13 M/mm3 (4.2-5.4); White Blood Count 7.4 K/mm3 (4.4-11.0)
[2023-06-19 08:32] VITALS: BP 95/48; PULSE 93; RESP 16; TEMP 36.6; O2SAT 98
--- NOTE | 2023-06-19 08:32 | PCM.PN.OB ---
Subjective Subjective Patient doing well without complaints. Tolerating PO. Ambulating and voiding without difficulty. Feeding well. Denies chest pain, shortness of breath, calf pain/swelling, fevers, chills, lightheadedness. Objective Data Objective Data Vital Signs: Vital Signs Temp Pulse Resp BP Pulse Ox O2 Del Method 97.2 F L 94 15 109/56 L 96 Room Air 06/19/23 03:45 06/19/23 03:45 06/19/23 03:45 06/19/23 03:45 06/19/23 03:45 06/19/23 03:45 Oxygen Delivery Method Room Air Weight: 232 lb Body Mass Index (BMI) 39.8 Intake & Output: Intake and Output for Last 24 Hours 06/17/23 06/18/23 06/19/23 23:59 23:59 23:59 Intake Total 2174.17 / 2174.17 Output Total 2049 / 2049 Balance 124.17 / 124.17 Lab / Micro Data 06/19/23 06:20 Labs: Laboratory Results - last 24 hr 06/19/23 06:20: WBC 7.4, RBC 3.13 L, Hgb 9.3 L, Hct 28.8 L, MCV 92.0, MCH 29.7, MCHC 32.3, RDW Std Deviation 46.0 H, RDW Coeff of Joceline 13.5, Plt Count 129 L, MPV 11.2 Physical Exam Const alert and no apparent distress Chest inspection of chest normal Resp normal respiratory effort and normal air movement Auscultation: clear to auscultation bilaterally Cardio regular rate GI normal to inspection, nondistended, normoactive bowel sounds GI Narrative: fundus firm, below u Extremity normal to inspection, no calf tenderness and no pedal edema Skin Skin Narrative: dressing c/d/i Psych mental status grossly normal Assessment & Plan (1) delivery delivered: COMMENT: RLTCS 39 boy (2) Umbilical hernia: COMMENT: Non symptomatic found on ED CT in August 2022 (3) Anxiety: COMMENT: no meds, counseling encouraged PLAN: Plan s/p LTCS PPD # 1. routine post care 2. breast feeding- support given 3. rh positive 4. rubella immune 5. d/c home today
[2023-06-19] MEDS: Naproxen 500 MG Tablet PO (09:09)
[2023-06-19] MEDS: Senna/Docusate Sodium 1 Tablet PO (09:09)
[2023-06-19] MEDS: oxyCODONE 5 MG Tablet PO (12:31)
[2023-06-19 12:34] VITALS: BP 122/74; PULSE 99; RESP 16; TEMP 37.1; O2SAT 97
--- NOTE | 2023-06-19 16:05 | CASEMGMT ---
Social Work Assessment Labor and Delivery Unit Patient Address:[address] [place] [id number] Phone number:[phone] Date of Referral: 06/18/23 Time of Referral:? 1143 Referred By: Dr. Stefani Mcduffie Date of Intervention: ??06/19/23 Time of Intervention:? 1320 Reason for Referral:? Mental health, anxiety Sw completed chart review and acknowledges social work consult due to anxiety. Sw presented to bedside and introduced self to mother of baby (MOB- Heidi) and father of baby (PARMJIT- Sae). Sw explained reason for sw involvement, completed psychosocial assessment and provided literature and information regarding local counseling agencies. History obtained from: medical records, MOB and FOB Household composition: Currently residing in the family home is PARMJIT ORELLANA Ryder (: 02/06/21) and now baby boy, named Yonis. Patient's parent/guardian status: MOB and PARMJIT met through mutual friends, they have been together for 3.5 years. This is the second child for both parents. PARMJIT states that he is really close with their 2 year old and ESTEBAN reports that he has been active in care with . Medical History: ESTEBAN is 2, para 1- now 2. ESTEBAN received routine care with Snow throughout her . ESTEBAN delivered baby boy via repeat . Baby boyYonis was born on 06/18/23 weighing 9lb 1oz and his apgars were 8 and 9 at one and five minutes of life respectfully. ESTEBAN reports that she is breast feeding and this is going well. ESTEBAN states that she has a breast pump for home. Baby will be seen by Dr. Aguayo for Pediatrics. Educational Status: ESTEBAN has obtained her masters degree in social work. PARMJIT has an associates degree in criminal justice. Parents deny any learning difficulties. Financial Status: Both parents are gainfully employed outside of the home. ESTEBAN works PRN at [employer] in Mental Health services. PARMJIT works as an Managing Partner [employer] for a company called [employer]. PARMJIT works from home and is able to take 4 weeks off for paternity leave. Supplies:?Parents report they have obtained all necessary baby items including: car seat, safe sleep space, clothes, diapers, wipes and breast pump. Childcare/Caregiver(s):? MOB will be the primary caregiver to baby. ESTEBAN works PRN so she is able to manage her schedule easily, and it is helpful that PARMJIT works from home. When parents need assistance with childcare they get support from both grandmas. Transportation:?? Both parents have their drivers license and reliable modes of transportation. No transportation barriers at this time. Programs/Agencies Involved: ???Family is not connected to any community financial supports at this time as they are over income. Information was provided to ESTEBAN regarding counseling agencies that are local to her. Children Services/Legal Issues:?No prior involvement with Children's Services. No concerns or issues warranting referral at this time. ?? Behavioral Health Issues: ??Mental Health History:??ESTEBAN states that she has been diagnosed with anxiety and has a history of bulimia. PARMJIT denies mental health history. ESTEBAN reports that she was formerly prescribed proazac by . Sw discussed and educated parents on signs and symptoms of baby blues and depression. Sw explained that ESTEBAN is at higher risk due to her mental health history being positive for anxiety. ESTEBAN completed Bern Depression Scale, her score was a 2. Sw provided education and support. ESTEBAN stated that PARMJIT is a good support person for her and is able to recognize when she is struggling with her mental health. ? Substance Use History:?ESTEBAN denies substance use prior to and during . ? Family History:?Parents deny family history of substance use and mental health. ? Drug Screens: Last documented urine screen was 07/11/20 and it was negative for all substances. Family/Social Stressors:? Parents do not report any issues, concerns or stressors at this time. Support Systems: ESTEBAN states that both sets of grandparents are extremely supportive and helpful. Maternal grandma is going to be coming to stay with them for a couple of days to help out with the new baby and older brother. Depression/Shaken Baby/Safe Sleeping:? Sw provided education and literature on depression, anxiety and baby blues. Parents expressed understanding. Sw also educated parents on shaken baby prevention and ABCs of safe sleep. Parents report that they have a crib and a bassinet for baby to sleep in. ASSESSMENT:? Parents were engaged and talkative during assessment. Parents have close relationship and are happy that baby is here. Parents state that they are aware of signs and symptoms of baby blues and post depression signs to look out for. MOB receptive to support and recommendations provided by sw. PLAN:? MOB and baby to be discharged when medically ready. ?No other services requested or indicated. Jerman Dumont, MARINE ENGINEERING PROFESSOR, CLIENT LIAISON
== END 2023-06-19 14:00 | disposition home or self-care (01) | DRG 787 ==
PROVIDERS: Admitting Provider Obstetrics & Gynecology; PCP Student in an Organized Health Care Education/Training Program; Referring Provider Obstetrics & Gynecology; Visit Provider Obstetrics & Gynecology
PROC: 10D00Z1 Extraction of Products of Conception, Low, Open Approach (ICD-10-PCS; CPT 59514; principal; 2023-06-18 07:15)
DX: O34.211 Maternal care for low transverse scar from previous cesarean delivery (principal); O98.33 Other infections with a predominantly sexual mode of transmission complicating the puerperium; F41.9 Anxiety disorder, unspecified; O99.344 Other mental disorders complicating childbirth; Z37.0 Single live birth; E66.9 Obesity, unspecified; O99.214 Obesity complicating childbirth; A60.9 Anogenital herpesviral infection, unspecified; Z3A.37 37 weeks gestation of pregnancy; Z79.899 Other long term (current) drug therapy
CPT/HCPCS: 59025; 59050; 85025; 85027; 86780; 86850; 86900; 86901; 99221; 99252; J7120; A4216; G0378; G0463; J2405

== ENCOUNTER → 2024-03-29 | Outpatient (CLI) | payer OTHER, SELFPAY ==
[2024-03-29 18:12] LABS: Bacteria 0 SEEN /hpf (None Seen); Mucous, Urine 0 SEEN /hpf (<or=2+); Red Blood Cells-Urine 0 SEEN /hpf (0-5); Squamous Epithelial Cells - UA 0 SEEN /hpf (5-10)
[2024-03-29 18:33] LABS: Color, Urine Yellow (Yellow); Glucose, Dipstick Normal (Normal); Ketone-Dipstick Negative (Negative); Leukocyte Esterase-Dipstick 100 /ul (Negative); Nitrite-Dipstick Negative (Negative); Occult Blood-Urine 25 /ul (Negative); Protein-Dipstick Negative (Negative); Specific Gravity, Urine 1.005 (1.002-1.030); Urine Bilirubin Dipstick Negative (Negative); Urine Clarity Clear (Clear); Urine Urobilinogen Normal (Normal)
[2024-03-29 19:14] LABS: White Blood Cells 0-5 SEEN /hpf (0-5)
== END | disposition home or self-care (01) ==
LOC: LABSPEC 16:24
PROVIDERS: PCP Student in an Organized Health Care Education/Training Program; Referring Provider Physician Assistant; Visit Provider Physician Assistant
DX: R30.0 Dysuria (principal)
CPT/HCPCS: 81001; 87077; 87086; 87088; 87186

== ENCOUNTER → 2024-11-02 | Outpatient (CLI) | payer OTHER, SELFPAY | END | disposition home or self-care (01) | LOC: LABSPEC 16:53 | PROVIDERS: PCP Student in an Organized Health Care Education/Training Program; Referring Provider Nurse Practitioner Family; Visit Provider Nurse Practitioner Family | DX: N89.8 Other specified noninflammatory disorders of vagina (principal) | CPT/HCPCS: 87070; 87205 ==

== ENCOUNTER → 2024-11-07 | Outpatient (CLI) | payer OTHER, SELFPAY ==
[2024-11-07 16:30] LABS: Absolute Lymphocyte Count 2.35 X10^3/uL (0.83-4.51); Absolute Neutrophil Count 3.7 X10^3/uL (2.0-7.7); Basophil# 0.01 X10^3/uL; Basophil% 0.2 % (0-1); Eosinophil# 0.05 X10^3/uL; Eosinophils% 0.8 % (0-5); Hematocrit 42.4 % (37-47); Hemoglobin 14.3 g/dL (12.0-15.0); Lymphocyte # 2.35 X10^3/ul (0.83-4.51); Lymphocyte % 35.4 % (19-41); Mean Corp Hgb Conc 33.7 g/dL (32-36); Mean Corpuscular Hgb 29.4 pg (27.0-32.0); Mean Corpuscular Volume 87.2 fL (81-99); Mean Platelet Vol. 10.4 fl (6.2-12.0); Monocyte# 0.53 X10^3/uL; NRBC Flagged by Analyzer 0 % (0-5); Neutrophil # 3.67 X10^3/uL (2.7-7.7); Neutrophil % 55.3 % (47-70); Platelet Count 263 K/mm3 (150-450); RBC Distribution Width CV 12.4 % (11.6-14.6); RBC Distribution Width SD 39.6 fl (35.1-43.9); Red Blood Count 4.86 M/mm3 (4.2-5.4); White Blood Count 6.6 K/mm3 (4.4-11.0)
[2024-11-07 17:36] LABS: Vitamin B12 597 pg/mL (211-911); Vitamin D,25 Hydroxy 33.7 ng/mL
[2024-11-07 17:39] LABS: ALB/GLOB Ratio 1.1 RATIO (0.9-2.4); AST(SGOT) 10 U/L (15-37); Alanine Aminotransfer ALT/SGPT 18 U/L (13-56); Alkaline Phosphatase 59 U/L (45-117); Anion Gap 8 (5-15); BUN 8 mg/dL (7-18); BUN/Creat Ratio 11.1 RATIO (10-20); Chloride 104 mmol/L (98-107); Cholesterol 127 mg/dL (200); Creatinine, Serum 0.72 mg/dL (0.55-1.02); EST Glomerular Filtration Rate 102 mL/min (>60); Est Glom Filt Rate - Afr Amer 123 mL/min (>60); Globulin 3.8 g/dL (2.2-4.2); Glucose 79 mg/dL (74-106); High Density Lipoprotein 62 mg/dL; Iron 71 ug/dL (50-170); Iron Binding Capacity,Total 311 ug/dL (250-450); Magnesium 2.1 mg/dL (1.6-2.6); PERCENT IRON SATURATION 22.8 % (15.0-55.0); Potassium 3.8 mmol/L (3.5-5.1); Protein, Total 7.8 g/dL (6.4-8.2); Sodium Level 136 mmol/L (136-145); Triglycerides 81 mg/dL; Very Low Density Lipoprotein 16 mg/dL (5-40)
== END | disposition home or self-care (01) ==
LOC: LAB 16:04
PROVIDERS: PCP Student in an Organized Health Care Education/Training Program; Referring Provider Student in an Organized Health Care Education/Training Program; Visit Provider Student in an Organized Health Care Education/Training Program
DX: Z00.00 Encounter for general adult medical examination without abnormal findings (principal)
CPT/HCPCS: 36415; 80053; 80061; 82306; 82607; 83036; 83540; 83550; 83735; 85025